=== PATIENT | male | born 1950 | race Caucasian/White ===

== ENCOUNTER 2022-02-27 09:37 | Observation (INO) | payer MEDICARE ==
[2022-02-27 10:25] LABS: Glucose,Whole Blood 431 mg/dL (75-99)
[2022-02-27] MEDS ORDERED: SODIUM CHLORIDE 0.9% 500 ML 500 ML IV STA (10:49)
--- NOTE | 2022-02-27 10:57 | ED ---
General Adult HPI - General Chief complaint: Recheck/Abnormal Lab/Rx Stated complaint: High BS Time Seen by Provider: 02/27/22 10:40 Source: patient Mode of arrival: ambulatory Limitations: no limitations - History of Present Illness Initial comments: 72-year-old male alert and oriented 4, presents with complaints of 100 pound weight loss over the past 3 months with a decrease in appetite and generalized malaise. Patient states that he is a smoker and does smoke marijuana. Denies any drug use or daily drinking. He states he has not seen his primary care doctor, Dr Soares, in several years. He denies any medical history, states does not take any medication on a daily basis. -: month(s) (3) Severity scale (1-10): 0 Associated Symptoms: loss of appetite, malaise - Related Data Home Medications Medication Instructions Recorded Confirmed Aspirin EC [Ecotrin Low Dose] 81 mg PO DAILY 02/27/22 02/27/22 Allergies Allergy/AdvReac Type Severity Reaction Status Date / Time No Known Allergies Allergy Verified 02/27/22 11:08 Review of Systems ROS Statement: Those systems with pertinent positive or pertinent negative responses have been documented in the HPI. ROS Other: All systems not noted in ROS Statement are negative. Past Medical History Past Medical History: No Reported History History of Any Multi-Drug Resistant Organisms: None Reported Additional Past Surgical History / Comment(s): pierre lomax. Past Psychological History: No Psychological Hx Reported Smoking Status: Current every day smoker Past Alcohol Use History: Occasional Past Drug Use History: Marijuana General Exam Limitations: no limitations General appearance: alert, in no apparent distress Head exam: Present: atraumatic Eye exam: Present: normal appearance, PERRL, EOMI. Absent: scleral icterus, conjunctival injection, nystagmus, periorbital swelling, periorbital tenderness ENT exam: Present: mucous membranes moist, other (Dried blood in the left nostril shallow abrasion nasal fold) Expanded Mouth exam: Present: tongue normal, tongue elevation. Absent: drooling, trismus, muffled voice Neck exam: Present: normal inspection, full ROM. Absent: tenderness, meningi smus, lymphadenopathy, thyromegaly Respiratory exam: Present: normal lung sounds bilaterally. Absent: respiratory distress, wheezes, rales, rhonchi, stridor, chest wall tenderness, accessory muscle use, decreased breath sounds Cardiovascular Exam: Present: tachycardia, normal heart sounds. Absent: JVD GI/Abdominal exam: Present: soft. Absent: distended, tenderness, guarding, rebound, rigid Extremities exam: Present: full ROM, normal capillary refill. Absent: tenderness, pedal edema Back exam: Present: full ROM. Absent: tenderness, CVA tenderness (R), CVA tenderness (L), paraspinal tenderness, vertebral tenderness, rash noted Neurological exam: Present: alert, oriented X3 Psychiatric exam: Present: normal affect, normal mood Skin exam: Present: warm, dry, pallor. Absent: cyanosis, diaphoretic Course Vital Signs 02/27/22 02/27/22 02/27/22 10:22 11:35 13:07 Temperature 97.6 F 97.4 F L Pulse Rate 105 H 85 Respiratory 18 62 H 20 Rate Blood Pressure 112/78 129/90 144/90 O2 Sat by Pulse 99 97 97 Oximetry 02/27/22 14:28 Temperature Pulse Rate 74 Respiratory 18 Rate Blood Pressure 133/92 O2 Sat by Pulse 100 Oximetry Medical Decision Making - Medical Decision Making 72-year-old male alert and oriented 4, presents with complaints of 100 pound weight loss over the past 3 months with a decrease in appetite and generalized malaise. Chest x-ray shows COPD with prominent emphysema. Sternotomy wires present. No evidence of masses. Hemoglobin and hematocrit are stable and there is no evidence of leukocytosis. Patient's blood glucose is 431 with a hemoglobin A1c of 12.9. Potassium is 2.8, chloride of 90 and a carbon dioxide of 35. Lactic acidosis of 3.0. Troponin is negative at 0.012. Patient was given potassium replacement in the emergency room in addition to IV fluids Patient will be admitted for hypokalemia, lactic acidosis, dehydration. Case discussed with Dr. Boyd. - Lab Data Result diagrams: 02/27/22 11:09 02/27/22 11:09 Lab Results 02/27/22 02/27/22 02/27/22 Range/Units 10:23 11:09 11:09 WBC 8.4 (3.8-10.6) k/uL RBC 5.96 H (4.30-5.90) m/uL Hgb 18.1 H (13.0-17.5) gm/dL Hct 52.3 (39.0-53.0) % MCV 87.8 (80.0-100.0) fL MCH 30.4 (25.0-35.0) pg MCHC 34.6 (31.0-37.0) g/dL RDW 13.4 (11.5-15.5) % Plt Count 280 (150-450) k/uL MPV 8.3 Neutrophils % 76 % Lymphocytes % 16 % Monocytes % 4 % Eosinophils % 1 % Basophils % 1 % Neutrophils # 6.5 (1.3-7.7) k/uL Lymphocytes # 1.4 (1.0-4.8) k/uL Monocytes # 0.3 (0-1.0) k/uL Eosinophils # 0.1 (0-0.7) k/uL Basophils # 0.1 (0-0.2) k/uL PT 10.3 (9.0-12.0) sec INR 0.9 (<1.2) APTT 22.3 (22.0-30.0) sec Sodium (137-145) mmol/L Potassium (3.5-5.1) mmol/L Chloride (98-107) mmol/L Carbon Dioxide (22-30) mmol/L Anion Gap mmol/L BUN (9-20) mg/dL Creatinine (0.66-1.25) mg/dL Est GFR (CKD-EPI)AfAm (>60 ml/min/1.73 sqM) Est GFR (CKD-EPI)NonAf (>60 ml/min/1.73 sqM) Glucose (74-99) mg/dL POC Glucose (mg/dL) 431 H (75-99) mg/dL POC Glu Linen Clerk Dav [address] Glu mg/dL Hemoglobin A1c (0.0-6.0) % Lactic Ac Sepsis Rflx Plasma Lactic Acid Lemuel (0.7-2.0) mmol/L Calcium (8.4-10.2) mg/dL Ionized Calcium Toma (4.5-5.3) mg/dL Magnesium (1.6-2.3) mg/dL Total Bilirubin (0.2-1.3) mg/dL AST (17-59) U/L ALT (4-49) U/L Alkaline Phosphatase (38-126) U/L Troponin I (0.000-0.034) ng/mL Total Protein (6.3-8.2) g/dL Albumin (3.5-5.0) g/dL TSH (0.465-4.680) mIU/L Urine Color Urine Appearance (Clear) Urine pH (5.0-8.0) Ur Specific [place] (1.001-1.035) Urine Protein (Negative) Urine Glucose (UA) (Negative) Urine Ketones (Negative) Urine Blood (Negative) Urine Nitrite (Negative) Urine Bilirubin (Negative) Urine Urobilinogen (<2.0) mg/dL Ur Leukocyte Esterase (Negative) 02/27/22 02/27/22 02/27/22 Range/Units 11:09 11:09 11:09 WBC (3.8-10.6) k/uL RBC (4.30-5.90) m/uL Hgb (13.0-17.5) gm/dL Hct (39.0-53.0) % MCV (80.0-100.0) fL MCH (25.0-35.0) pg MCHC (31.0-37.0) g/dL RDW (11.5-15.5) % Plt Count (150-450) k/uL MPV Neutrophils % % Lymphocytes % % Monocytes % % Eosinophils % % Basophils % % Neutrophils # (1.3-7.7) k/uL Lymphocytes # (1.0-4.8) k/uL Monocytes # (0-1.0) k/uL Eosinophils # (0-0.7) k/uL Basophils # (0-0.2) k/uL PT (9.0-12.0) sec INR (<1.2) APTT (22.0-30.0) sec Sodium 135 L (137-145) mmol/L Potassium 2.8 L (3.5-5.1) mmol/L Chloride 90 L (98-107) mmol/L Carbon Dioxide 35 H (22-30) mmol/L Anion Gap 10 mmol/L BUN 5 L (9-20) mg/dL Creatinine 0.51 L (0.66-1.25) mg/dL Est GFR (CKD-EPI)AfAm >90 (>60 ml/min/1.73 sqM) Est GFR (CKD-EPI)NonAf >90 (>60 ml/min/1.73 sqM) Glucose 416 H (74-99) mg/dL POC Glucose (mg/dL) (75-99) mg/dL POC Glu Linen Clerk ID Estimated [address] Glu mg/dL 324 Hemoglobin A1c 12.9 H (0.0-6.0) % Lactic Ac Sepsis Rflx Plasma Lactic Acid Lemuel (0.7-2.0) mmol/L Calcium 8.8 (8.4-10.2) mg/dL Ionized Calcium [place] 4.5 (4.5-5.3) mg/dL Magnesium 1.7 (1.6-2.3) mg/dL Total Bilirubin 1.1 (0.2-1.3) mg/dL AST 23 (17-59) U/L ALT 23 (4-49) U/L Alkaline Phosphatase 179 H (38-126) U/L Troponin I <0.012 (0.000-0.034) ng/mL Total Protein 6.3 (6.3-8.2) g/dL Albumin 3.5 (3.5-5.0) g/dL TSH 1.540 (0.465-4.680) mIU/L Urine Color Urine Appearance (Clear) Urine pH (5.0-8.0) Ur Specific [place] (1.001-1.035) Urine Protein (Negative) Urine Glucose (UA) (Negative) Urine Ketones (Negative) Urine Blood (Negative) Urine Nitrite (Negative) Urine Bilirubin (Negative) Urine Urobilinogen (<2.0) mg/dL Ur Leukocyte Esterase (Negative) 02/27/22 02/27/22 02/27/22 Range/Units 11:10 11:11 11:27 WBC (3.8-10.6) k/uL RBC (4.30-5.90) m/uL Hgb (13.0-17.5) gm/dL Hct (39.0-53.0) % MCV (80.0-100.0) fL MCH (25.0-35.0) pg MCHC (31.0-37.0) g/dL RDW (11.5-15.5) % Plt Count (150-450) k/uL MPV Neutrophils % % Lymphocytes % % Monocytes % % Eosinophils % % Basophils % % Neutrophils # (1.3-7.7) k/uL Lymphocytes # (1.0-4.8) k/uL Monocytes # (0-1.0) k/uL Eosinophils # (0-0.7) k/uL Basophils # (0-0.2) k/uL PT (9.0-12.0) sec INR (<1.2) APTT (22.0-30.0) sec Sodium (137-145) mmol/L Potassium (3.5-5.1) mmol/L Chloride (98-107) mmol/L Carbon Dioxide (22-30) mmol/L Anion Gap mmol/L BUN (9-20) mg/dL Creatinine (0.66-1.25) mg/dL Est GFR (CKD-EPI)AfAm (>60 ml/min/1.73 sqM) Est GFR (CKD-EPI)NonAf (>60 ml/min/1.73 sqM) Glucose (74-99) mg/dL POC Glucose (mg/dL) (75-99) mg/dL POC Glu Linen Clerk ID Estimated Ave Glu mg/dL Hemoglobin A1c (0.0-6.0) % Lactic Ac Sepsis Rflx Y Plasma Lactic Acid Lemuel 3.0 H* (0.7-2.0) mmol/L Calcium (8.4-10.2) mg/dL Ionized Calcium Toma (4.5-5.3) mg/dL Magnesium (1.6-2.3) mg/dL Total Bilirubin (0.2-1.3) mg/dL AST (17-59) U/L ALT (4-49) U/L Alkaline Phosphatase (38-126) U/L Troponin I (0.000-0.034) ng/mL Total Protein (6.3-8.2) g/dL Albumin (3.5-5.0) g/dL TSH (0.465-4.680) mIU/L Urine Color Yellow Urine Appearance Clear (Clear) Urine pH 6.5 (5.0-8.0) Ur Specific [place] 1.040 H (1.001-1.035) Urine Protein Negative (Negative) Urine Glucose (UA) 4+ H (Negative) Urine Ketones 1+ H (Negative) Urine Blood Negative (Negative) Urine Nitrite Negative (Negative) Urine Bilirubin Negative (Negative) Urine Urobilinogen <2.0 (<2.0) mg/dL Ur Leukocyte Esterase Negative (Negative) Disposition Clinical Impression: Hypokalemia, Dehydration, Lactic acid acidosis, Hyperglycemia Disposition: ADMITTED IP TO THIS HOSP Decision Date: 02/27/22 Decision Time: 12:29
[2022-02-27 11:20] LABS: Ionized Calcium 4.5 mg/dL (4.5-5.3)
[2022-02-27 11:26] LABS: ALT 23 U/L (4-49); AST 23 U/L (17-59); African American GFR (CKD) >90 (>60 ml/min/1.73 sqM); Albumin 3.5 g/dL (3.5-5.0); Alkaline Phosphatase 179 U/L (38-126); Anion Gap 10 mmol/L; Blood Urea Nitrogen 5 mg/dL (9-20); Calcium 8.8 mg/dL (8.4-10.2); Carbon Dioxide 35 mmol/L (22-30); Chloride 90 mmol/L (98-107); Glucose 416 mg/dL (74-99); Magnesium 1.7 mg/dL (1.6-2.3); Non-African American GFR(CKD) >90 (>60 ml/min/1.73 sqM); Potassium 2.8 mmol/L (3.5-5.1); Sodium 135 mmol/L (137-145); Total Bilirubin 1.1 mg/dL (0.2-1.3); Total Protein 6.3 g/dL (6.3-8.2)
[2022-02-27 11:29] LABS: Basophils # (A) 0.1 k/uL (0-0.2); Basophils % (A) 1 %; Eosinophils # (A) 0.1 k/uL (0-0.7); Eosinophils % (A) 1 %; HCT 52.3 % (39.0-53.0); HGB 18.1 gm/dL (13.0-17.5); Lymphocytes # (A) 1.4 k/uL (1.0-4.8); Lymphocytes % (A) 16 %; MCH 30.4 pg (25.0-35.0); MCHC 34.6 g/dL (31.0-37.0); MCV 87.8 fL (80.0-100.0); Mean Platelet Volume 8.3; Monocytes # (A) 0.3 k/uL (0-1.0); Monocytes % (A) 4 %; Neutrophils # (A) 6.5 k/uL (1.3-7.7); Neutrophils % (A) 76 %; Platelet Count 280 k/uL (150-450); RBC 5.96 m/uL (4.30-5.90); RDW 13.4 % (11.5-15.5); WBC 8.4 k/uL (3.8-10.6)
[2022-02-27 11:32] LABS: Appearance,Urine Clear (Clear); Bilirubin,Urine Negative (Negative); Blood,Urine Negative (Negative); Color,Urine Yellow; Glucose,Urine (UA) 4+ (Negative); Ketones,Urine 1+ (Negative); Leukocyte Esterase,Urine Negative (Negative); Nitrite,Urine Negative (Negative); PH, Urine 6.5 (5.0-8.0); Protein,Urine Negative (Negative); Urobilinogen,Urine <2.0 mg/dL (<2.0)
[2022-02-27] MEDS ORDERED: Potassium Replacement Protocol 1 EACH MISC MISCELLANE PRN (11:32)
[2022-02-27] MEDS ORDERED: SODIUM CHLORIDE 0.9% 1,000 ML IV ONE (11:33)
[2022-02-27 11:38] LABS: INR 0.9 (<1.2); Partial Thromboplastin Time 22.3 sec (22.0-30.0); Prothrombin Time 10.3 sec (9.0-12.0)
--- NOTE | 2022-02-27 11:40 | XR ---
EXAMINATION TYPE: XR chest 2V DATE OF EXAM: 02/27/2022 COMPARISON: None HISTORY: 72-year-old male with weakness, weight loss TECHNIQUE: Frontal and lateral views FINDINGS: Median sternotomy wires and post-CABG clips in the mediastinum. Heart normal size. Aorta and pulmonar y vasculature within normal limits. Hyperinflation with relative lung lucencies. Retained epicardial pacer leads. No consolidation or pleural effusion. IMPRESSION: COPD with prominent emphysema. Post-CABG changes. No acute process seen.
[2022-02-27] MEDS ORDERED: NALOXONE 0.4 MG/ML 1 ML VIAL IV PRN (12:49)
[2022-02-27] MEDS: POTASSIUM CHLORIDE 10 MEQ in WATER FOR INJECTION 1 100ML.BAG IVPB SCH ×6 (12:53→20:52)
[2022-02-27] MEDS: POTASSIUM CHLORIDE ER 20 MEQ TAB.ER PO SCH ×3 (12:54→15:54)
--- NOTE | 2022-02-27 14:13 | P.HPIM ---
History of Present Illness Issue is a 72-year-old male with a past medical history significant for coronary disease status post quadruple bypass the presents to the hospital complaining of feeling lethargic, weak and having significant weight loss over the past few months. Patient endorses over 100 pound weight loss with decreased appetite. He does use marijuana smokes approximately 3 blunts a day. Patient's vital signs he is afebrile slightly hypertensive 144/90, sodium 135, potassium 2.8, glucose 416 lactic acidosis at 3.0. Crit troponin was found to be negative 1. Patient has seen a doctor in many years and is being admitted to internal medic ine for close monitoring. Past Medical History Past Medical History: No Reported History History of Any Multi-Drug Resistant Organisms: None Reported Additional Past Surgical History / Comment(s): pierre lomax. Past Psychological History: No Psychological Hx Reported Smoking Status: Current every day smoker Past Alcohol Use History: Occasional Past Drug Use History: Marijuana Medications and Allergies Home Medications Medication Instructions Recorded Confirmed Type Aspirin EC [Ecotrin Low Dose] 81 mg PO DAILY 02/27/22 02/27/22 History Allergies Allergy/AdvReac Type Severity Reaction Status Date / Time No Known Allergies Allergy Verified 02/27/22 11:08 Physical Exam Vitals: Vital Signs Temp Pulse Resp BP Pulse Ox 02/27/22 13:07 85 20 144/90 97 02/27/22 11:35 97.4 F L 62 H 129/90 97 02/27/22 10:22 97.6 F 105 H 18 112/78 99 Intake and Output 02/26/22 02/27/22 02/27/22 22:59 06:59 14:59 Other: Weight 52.163 kg general awake alert oriented 3, very pleasant Cardiovascular normal S1/S2, no murmurs appreciated Respiratory normal bilateral air entry no wheezing or rhonchi appreciated Abdomen soft, nontender Extremity no pitting edema noted Results CBC & Chem 7: 02/27/22 11:09 02/27/22 11:09 Labs: Abnormal Lab Results - Last 24 Hours (Table) 02/27/22 02/27/22 02/27/22 Range/Units 10:23 11:09 11:09 RBC 5.96 H (4.30-5.90) m/uL Hgb 18.1 H (13.0-17.5) gm/dL Sodium 135 L (137-145) mmol/L Potassium 2.8 L (3.5-5.1) mmol/L Chloride 90 L (98-107) mmol/L Carbon Dioxide 35 H (22-30) mmol/L BUN 5 L (9-20) mg/dL Creatinine 0.51 L (0.66-1.25) mg/dL Glucose 416 H (74-99) mg/dL POC Glucose (mg/dL) 431 H (75-99) mg/dL Plasma Lactic Acid Lemuel (0.7-2.0) mmol/L Alkaline Phosphatase 179 H (38-126) U/L Ur Specific [place] (1.001-1.035) Urine Glucose (UA) (Negative) Urine Ketones (Negative) 02/27/22 02/27/22 Range/Units 11:10 11:11 RBC (4.30-5.90) m/uL Hgb (13.0-17.5) gm/dL Sodium (137-145) mmol/L Potassium (3.5-5.1) mmol/L Chloride (98-107) mmol/L Carbon Dioxide (22-30) mmol/L BUN (9-20) mg/dL Creatinine (0.66-1.25) mg/dL Glucose (74-99) mg/dL POC Glucose (mg/dL) (75-99) mg/dL Plasma Lactic Acid Lemuel 3.0 H* (0.7-2.0) mmol/L Alkaline Phosphatase (38-126) U/L Ur Specific [place] 1.040 H (1.001-1.035) Urine Glucose (UA) 4+ H (Negative) Urine Ketones 1+ H (Negative) Assessment and Plan Assessment: Assessment: #1 hyperglycemia secondary to undiagnosed diabetes mellitus? #2 coronary disease status post quadruple bypass Plan: -Admit to medicine for close monitoring -Aspiration/fall precaution/HB 30 -Obtain hemoglobin A1c and lipid panel -We'll start patient on low-dose sliding scale and 5 units Levemir for now -PT/OT-patient lives by himself -DVT prophylaxis Lovenox
[2022-02-27] MEDS: SODIUM CHLORIDE 0.9% 1,000 ML IV SCH (14:21)
[2022-02-27 17:51] LABS: Glucose,Whole Blood 238 mg/dL (75-99)
[2022-02-27] MEDS: INSULIN ASPART (NovoLOG) 100 UNIT/ML VIAL SQ SCH ×2 (18:12→20:53)
[2022-02-27 20:26] LABS: Glucose,Whole Blood 267 mg/dL (75-99)
[2022-02-27] MEDS: INSULIN DETEMIR (LEVEMIR) 100 UNIT/ML SYR SQ SCH (20:53)
[2022-02-27 22:52] LABS: Chol/HDL Ratio 3.95 Ratio; LDL Cholesterol,Calculated 95.1 mg/dL (0.0-131.0)
[2022-02-28] MEDS: SODIUM CHLORIDE 0.9% 1,000 ML IV SCH ×2 (04:37→17:00)
[2022-02-28 07:01] LABS: Glucose,Whole Blood 106 mg/dL (75-99)
[2022-02-28] MEDS: INSULIN ASPART (NovoLOG) 100 UNIT/ML VIAL SQ SCH ×3 (08:16→17:52)
[2022-02-28] MEDS: INSULIN DETEMIR (LEVEMIR) 100 UNIT/ML SYR SQ SCH (08:33)
[2022-02-28] MEDS ORDERED: ASPIRIN 81 MG PO SCH (09:00)
[2022-02-28 09:43] LABS: Basophils # (A) 0.11 X 10*3/uL (0.00-0.10); Basophils % (A) 1.2 %; Eosinophils # (A) 0.17 X 10*3/uL (0.04-0.35); Eosinophils % (A) 1.9 %; HCT 47.4 % (39.6-50.0); HGB 16.4 g/dL (13.0-17.0); Immature Grans, Automated 0.2 %; Lymphocytes # (A) 2.34 X 10*3/uL (0.90-5.00); Lymphocytes % (A) 26.3 %; MCH 29.1 pg (27.0-32.0); MCHC 34.6 g/dL (32.0-37.0); Mean Platelet Volume 10.9 fL (9.5-12.2); Monocytes # (A) 0.65 X 10*3/uL (0.20-1.00); Monocytes % (A) 7.3 %; NRBC Per 100 WBC 0 /100 WBCS (0.0-0.0); Neutrophils # (A) 5.61 X 10*3/uL (1.80-7.70); Neutrophils % (A) 63.1 %; Platelet Count 264 X 10*3/uL (140-440); RBC 5.64 X 10*6/uL (4.40-5.60); RDW 12.9 % (11.5-14.5)
[2022-02-28 09:58] LABS: African American GFR (CKD) 117.2 (60.0-200.0); Blood Urea Nitrogen 3.6 mg/dL (9.0-27.0); Calcium 8.8 mg/dL (8.7-10.3); Non-African American GFR(CKD) 101.2 (60.0-200.0); Potassium 3.2 mmol/L (3.5-5.5)
[2022-02-28 11:51] LABS: Glucose,Whole Blood 110 mg/dL (75-99)
[2022-02-28 13:47] VITALS: BMI 18.6
[2022-02-28 14:56] VITALS: BP 119/75; PULSE 92; RESP 16; TEMP 98.3
[2022-02-28] MEDS ORDERED: MAGNESIUM OXIDE 400 MG TAB PO STA (16:52)
[2022-02-28] MEDS ORDERED: POTASSIUM CHLORIDE ER 20 MEQ TAB.ER PO STA (16:53)
[2022-02-28 17:01] LABS: Glucose,Whole Blood 98 mg/dL (75-99)
--- NOTE | 2022-02-28 18:01 | P.DS ---
Providers Date of admission: 02/27/22 12:57 Expected date of discharge: 02/28/22 Attending physician: Norm Raphael MD Primary care physician: Fany Villalobos Hospital Course: Discharge Diagnosis: Newly diagnosed diabetes with hemoglobin A1c of 12.9%, recommended patient to be started on insulin patient adamantly against this. Patient discharged home on metformin and glipizide. Patient received education on checking his blood glucose levels and will receive glucometer, glucose testing supplies, and medications from [facility] pharmacy prior to discharge. COPD, recommend following up outpatient with registered health nurse as we discussed. Hypokalemia, replaced Hypomagnesemia, replaced History of CAD status post quadruple bypass, recommend continuing daily aspirin 81 mg and follow up outpatient with dishwasher busser for full workup. Daily cannabis use, recommended total cessation Nicotine dependence, recommend smoking cessation of both marijuana and cigarettes and follow-up with pulmonology for PFTs to evaluate COPD Hyponatremia and hypochloremia, resolved with IV fluid hydration Hospital Course: Patient is a 72-year-old male with a past medical history of CAD status post quadruple bypass and daily marijuana use who presented to the hospital with a chief complaint of feeling lethargic, weak, and weight loss over the past few months. He was seen and fully evaluated at the hospital with CBC unremarkable with the exception of elevated hemoglobin of 18.1 and a CO2 of 35. Chest x-ray consistent with COPD with prominent emphysema. Patient denies history of being told he has COPD but has long-standing history of nicotine dependence and daily cannabis use. BMP did reveal significant hypokalemia with potassium of 2.8, hyperchloremia with chloride of 90, and hypercarbia with CO2 of 35. Lastly serum glucose was 416 and hemoglobin A1c 12.9%. Patient was admitted under our services and underwent overnight monitoring. Patient was placed on glycemic protocol with NovoLog sliding scale. Patient underwent diabetic teaching and strongly encourage that he will need to be discharged home on insulin. Patient very adamant against being discharged home on insulin stating he will not administer injections. Patient denies alcohol use at home but does report drinking a lot of regular soda every day. Patient educated on the importance of cessation of regular soda and informed that he will need to switch to diet and/or water as it is important in controlling his blood glucose levels especially with his history of CAD with previous quadruple bypass. Patient received education on monitoring his blood glucose levels and will receive glucometer, glucose testing supplies, and medications Glucophage and glipizide upon discharge. Patient informed that this is not the end of his testing that he will need full workups completed by dishwasher busser, registered health nurse, and his primary doctor for further evaluation as patient reports not being seen/following a primary doctor in many many many years. Patient educated on the importance of follow-up and maintaining health. At this time patient is medically stable, after receiving IV hydration and obtaining control of glucose levels patient's lethargy and weakness subsided and patient reports feeling great and ready to go home. Patient scheduled appointment with Dr. Soares for tomorrow morning and verbalized that he will follow up . A total of 45 minutes of time were spent preparing this complex discharge summary. Patient Condition at Discharge: Stable Plan - Discharge Summary Discharge Rx Participant: Yes New Discharge Prescriptions: New metFORMIN HCL [Glucophage] 500 mg PO BID 30 Days #60 tab glipiZIDE [Glucotrol XL] 10 mg PO DAILY 30 Days #30 tab Continue Aspirin EC [Ecotrin Low Dose] 81 mg PO DAILY Discharge Medication List Aspirin EC [Ecotrin Low Dose] 81 mg PO DAILY 02/27/22 [History] glipiZIDE [Glucotrol XL] 10 mg PO DAILY 30 Days #30 tab 02/28/22 [Rx] metFORMIN HCL [Glucophage] 500 mg PO BID 30 Days #60 tab 02/28/22 [Rx] Follow up Appointment(s)/Referral(s): Gisela Jean MD [STAFF PHYSICIAN] - 1 Week (Recommend following up outpatient with dishwasher busser as you have a significant cardiac history with a quadruple bypass back in 1988 and do not follow with cardiology or take any cardiac medications.) Wilfredo Soares MD [Primary Care Provider] - 1-2 days Jennyfer Floyd MD [STAFF PHYSICIAN] - 1 Week (Recommend following up with a registered health nurse for PFTs as it is believed to have underlying undiagnosed COPD) Ambulatory/Diagnostic Orders: Basic Metabolic Panel [LAB.AMB] Time Frame: 3 Days, Location: None Selected Patient Instructions/Handouts: Hypoglycemia in a Person with Diabetes (DC), Di abetic Hyperglycemia (DC), What to Do if Your Blood Sugar is Low (DC), Diabetes and Nutrition (DC) Activity/Diet/Wound Care/Special Instructions: Activity: As tolerated. Take breaks as needed. Diet: Heart healthy and carb consistent diet. Avoid salts, or foods with hidden salts such as canned or boxed foods and frozen dinners. Extra salt makes your heart work harder and traps the fluid in your body for longer. Special Instructions: Take all of your medications as directed and remember to keep all of your doctor's appointments and follow-up as needed. It is very important for you to monitor blood glucose levels every day as we discussed and he will need to follow up with your PCP, Dr. Soares on a regular basis. As I informed you typically somebody with a hemoglobin A1c of 12.9% requires insulin, and since you aren't supposed to administration of insulin, it is very important for you to follow a strict heart healthy and carb consistent diet and especially stop drinking regular pop/soda intake the medications as directed. You will need to log/document daily blood glucose levels in a journal to bring with you each time to Dr. Soares's office as further adjustments may need to be made to your medication regimen. Rach at [facility] will supply your blood sugar testing supplies. They can be contacted at [phone]. You will need to make sure that you follow with your primary care doctor as we discussed. It is also important to be evaluated by a registered health nurse for COPD and a dishwasher busser for pre-existing coronary artery disease with history of bypass and no longer taking any cardiac medications. I understand that you are not going to the doctor's and/or hospital however it is of utmost importance to get full workup completed and all areas of your health. Thank you for allowing us to participate in your care, it was truly a pleasure having you for our patient!!! Discharge Disposition: HOME SELF-CARE
== END 2022-02-28 18:05 | disposition home or self-care (01) ==
LOC: EC 09:37 → 6NMEDSUR 12:57
PROVIDERS: ADMIT Internal Medicine; ATTEND Internal Medicine
DX: E11.65 Type 2 diabetes mellitus with hyperglycemia (principal); E87.2 Acidosis; E86.0 Dehydration; E87.6 Hypokalemia; R53.81 Other malaise; R63.4 Abnormal weight loss; J43.9 Emphysema, unspecified; R63.0 Anorexia; E83.42 Hypomagnesemia; E87.1 Hypo-osmolality and hyponatremia; E87.8 Other disorders of electrolyte and fluid balance, not elsewhere classified; R06.89 Other abnormalities of breathing; F17.200 Nicotine dependence, unspecified, uncomplicated; I25.10 Atherosclerotic heart disease of native coronary artery without angina pectoris; I10 Essential (primary) hypertension; Z95.1 Presence of aortocoronary bypass graft; Z71.6 Tobacco abuse counseling; Z71.3 Dietary counseling and surveillance; Z71.89 Other specified counseling; Z79.82 Long term (current) use of aspirin
CPT/HCPCS: 96361 ×2; 96366 ×2; 96365; 99284; 36415; 97161; 80061; 80053; 80048; 82330; 83605; 83735 ×2; 84443; 84484; 85025 ×2; 85610; 85730; 81003; 83036; 71046; G0378 ×2; J3480

== ENCOUNTER 2022-04-23 16:51 | Inpatient (IN) | payer MEDICARE ==
[2022-04-23 17:59] LABS: ALT 52 U/L (4-49); AST 84 U/L (17-59); African American GFR (CKD) >90 (>60 ml/min/1.73 sqM); Albumin 3.7 g/dL (3.5-5.0); Alkaline Phosphatase 445 U/L (38-126); Anion Gap 4 mmol/L; Blood Urea Nitrogen 16 mg/dL (9-20); Calcium 9.4 mg/dL (8.4-10.2); Carbon Dioxide 35 mmol/L (22-30); Chloride 96 mmol/L (98-107); Glucose 53 mg/dL (74-99); Non-African American GFR(CKD) >90 (>60 ml/min/1.73 sqM); Potassium 3.6 mmol/L (3.5-5.1); Sodium 135 mmol/L (137-145); Total Bilirubin 1.2 mg/dL (0.2-1.3); Total Protein 6.6 g/dL (6.3-8.2)
[2022-04-23 18:11] LABS: Basophils # (A) 0.3 k/uL (0-0.2); Basophils % (A) 3 %; Eosinophils # (A) 0.1 k/uL (0-0.7); Eosinophils % (A) 1 %; Lymphocytes # (A) 1.4 k/uL (1.0-4.8); Lymphocytes % (A) 15 %; MCH 29.6 pg (25.0-35.0); MCV 89.8 fL (80.0-100.0); Mean Platelet Volume 8.1; Monocytes # (A) 0.5 k/uL (0-1.0); Monocytes % (A) 6 %; Neutrophils # (A) 6.6 k/uL (1.3-7.7); Neutrophils % (A) 73 %; Platelet Count 297 k/uL (150-450); RBC 5.23 m/uL (4.30-5.90); RDW 14.5 % (11.5-15.5); WBC 9.1 k/uL (3.8-10.6)
[2022-04-23 18:13] LABS: HGB 15.5 gm/dL (13.0-17.5)
[2022-04-23 18:20] LABS: Prothrombin Time 10.9 sec (9.0-12.0)
[2022-04-23 18:23] LABS: Partial Thromboplastin Time 21.7 sec (22.0-30.0)
--- NOTE | 2022-04-23 18:48 | ED ---
Weakness HPI - General Chief complaint: Weakness Stated complaint: Low BS/Wt loss Time Seen by Provider: 04/23/22 18:47 Source: patient, RN notes reviewed Mode of arrival: ambulatory Limitations: no limitations - History of Present Illness Initial comments: This is a 72-year-old male with a history of cardiac disease to include coronary artery bypass surgery. Patient comes in complaining of generalized weakness which is nonprogressive. Patient has lost 100 pounds over the past 3 months. Patient states he really has not been eating at all. He has had diminished appetite. Really no vomiting. States he still is having some bowel movements. He is also complaining difficulty with urination. Patient states he is going very frequently but not getting much out. He does have some lower abdominal pain which has been going on for several weeks. No headache, no fever or chills, no changes in vision or hearing, no sore throat or difficulty with speech, no neck pain, no chest pain or shortness of breath, no abdominal pain, no nausea or vomiting, no changes or bowel movements, no numbness or tingling, no extremity pain, no skin rashes or lesions. - Related Data Home Medications Medication Instructions Recorded Confirmed Aspirin EC [Ecotrin Low Dose] 81 mg PO DAILY 02/27/22 04/23/22 Ergocalciferol (Vitamin D2) 1,250 mcg PO TH 04/23/22 04/23/22 [Drisdol (50,000 Iu)] Previous Rx's Medication Instructions Recorded glipiZIDE [Glucotrol XL] 10 mg PO DAILY 30 Days #30 tab 02/28/22 metFORMIN HCL [Glucophage] 500 mg PO BID 30 Days #60 tab 02/28/22 Allergies Allergy/AdvReac Type Severity Reaction Status Date / Time No Known Allergies Allergy Verified 04/23/22 19:08 Review of Systems ROS Statement: Those systems with pertinent positive or pertinent negative responses have been documented in the HPI. ROS Other: All systems not noted in ROS Statement are negative. Past Medical History Past Medical History: No Reported History, Diabetes Mellitus History of Any Multi-Drug Resistant Organisms: None Reported Past Surgical History: Coronary Bypass/CABG, Hernia Repair Additional Past Surgical History / Comment(s): quad bypass about 1984. Past Anesthesia/Blood Transfusion Reactions: No Reported Reaction Past Psychological History: No Psychological Hx Reported Smoking Status: Current every day smoker Past Alcohol Use History: Occasional Past Drug Use History: Marijuana General Exam - General Exam Comments Initial Comments: This is a cachectic appearing 72-year-old male who is in no significant distress at the time I'm seeing him. Appears to be generally ill but not toxic. Pale appearance. Capillary refill is approximately 3 seconds. Limitations: no limitations General appearance: alert, in no apparent distress Head exam: Present: atraumatic, normocephalic, normal inspection Eye exam: Present: normal appearance, PERRL, EOMI. Absent: scleral icterus, conjunctival injection, periorbital swelling ENT exam: Present: normal exam, normal oropharynx, mucous membranes dry, mucous membranes moist, normal external ear exam Neck exam: Present: normal inspection. Absent: tenderness, meningismus, lymphadenopathy Respiratory exam: Present: normal lung sounds bilaterally. Absent: respiratory distress, wheezes, rales, rhonchi, stridor, chest wall tenderness, accessory muscle use, decreased breath sounds, prolonged expiratory Cardiovascular Exam: Present: regular rate, normal rhythm, normal heart sounds. Absent: systolic murmur, diastolic murmur, rubs, gallop, clicks GI/Abdominal exam: Present: soft, tenderness (Minimal tenderness to the lower abdomen on palpation. Abdomen soft otherwise), hyperactive bowel sounds. Absent: distended, guarding, rebound, rigid Extremities exam: Present: normal inspection, full ROM, normal capillary refill. Absent: tenderness, pedal edema, joint swelling, calf tenderness Back exam: Present: normal inspection Neurological exam: Present: alert, oriented X3, CN II-XII intact Psychiatric exam: Present: normal affect, normal mood Skin exam: Present: warm, dry, intact, normal color. Absent: rash Course Vital Signs 04/23/22 04/23/22 17:17 19:52 Temperature 97.6 F Pulse Rate 104 H 84 Respiratory 20 15 Rate Blood Pressure 96/74 114/83 O2 Sat by Pulse 98 100 Oximetry - Reevaluation(s) Reevaluation #1: 04/23/22 21:46 Medical record is reviewed Patient symptomatically unchanged Patient is informed of results and questions answered Patient in no distress - Consultations Consultation #1: Case discussed in detail with Dr. gonsalez would subsequent admission of the patient. EKG Findings - EKG Comments: EKG Findings:: EKG done at 1722 and read by the ED attending physician reveals ventricular rate of 103, normal intervals, normal axis, no evidence of ST elevation. Minimal ST depression by computerized interpretation, likely related to lead 3 which is very minimal. Medical Decision Making - Medical Decision Making Cachectic-appearing male with ongoing weight loss and generalized weakness. Patient found to be hyperglycemic. Patient states he is really not eating. Patient obviously malnourished. Suspect patient has some form of cancer, he has had increasing difficulty with urination. Possible prostate issues. Initial laboratory work ordered in triage shows elevation of the alkaline phosphatase with modest elevations of the hepatic enzymes. Admitted to [facility] hospitalist group. Consultation for oncology made. We'll keep the patient on D5 normal saline. We will initiate a sliding scale - Lab Data Result diagrams: 04/23/22 17:32 04/23/22 17:32 Lab Results 04/23/22 04/23/22 04/23/22 Range/Units 17:32 17:32 17:32 WBC 9.1 (3.8-10.6) k/uL RBC 5.23 (4.30-5.90) m/uL Hgb 15.5 (13.0-17.5) gm/dL Hct 47.0 (39.0-53.0) % MCV 89.8 (80.0-100.0) fL MCH 29.6 (25.0-35.0) pg MCHC 33.0 (31.0-37.0) g/dL RDW 14.5 (11.5-15.5) % Plt Count 297 (150-450) k/uL MPV 8.1 Neutrophils % 73 % Lymphocytes % 15 % Monocytes % 6 % Eosinophils % 1 % Basophils % 3 % Neutrophils # 6.6 (1.3-7.7) k/uL Lymphocytes # 1.4 (1.0-4.8) k/uL Monocytes # 0.5 (0-1.0) k/uL Eosinophils # 0.1 (0-0.7) k/uL Basophils # 0.3 H (0-0.2) k/uL PT 10.9 (9.0-12.0) sec INR 1.0 (<1.2) APTT 21.7 L (22.0-30.0) sec Sodium 135 L (137-145) mmol/L Potassium 3.6 (3.5-5.1) mmol/L Chloride 96 L (98-107) mmol/L Carbon Dioxide 35 H (22-30) mmol/L Anion Gap 4 mmol/L BUN 16 (9-20) mg/dL Creatinine 0.77 (0.66-1.25) mg/dL Est GFR (CKD-EPI)AfAm >90 (>60 ml/min/1.73 sqM) Est GFR (CKD-EPI)NonAf >90 (>60 ml/min/1.73 sqM) Glucose 53 L (74-99) mg/dL POC Glucose (mg/dL) (75-99) mg/dL POC Glu Code Inspector ID Plasma Lactic Acid Lemuel (0.7-2.0) mmol/L Calcium 9.4 (8.4-10.2) mg/dL Magnesium 2.0 (1.6-2.3) mg/dL Total Bilirubin 1.2 (0.2-1.3) mg/dL AST 84 H (17-59) U/L ALT 52 H (4-49) U/L Alkaline Phosphatase 445 H (38-126) U/L Troponin I (0.000-0.034) ng/mL Total Protein 6.6 (6.3-8.2) g/dL Albumin 3.7 (3.5-5.0) g/dL 04/23/22 04/23/22 04/23/22 Range/Units 17:32 19:35 19:46 WBC (3.8-10.6) k/uL RBC (4.30-5.90) m/uL Hgb (13.0-17.5) gm/dL Hct (39.0-53.0) % MCV (80.0-100.0) fL MCH (25.0-35.0) pg MCHC (31.0-37.0) g/dL RDW (11.5-15.5) % Plt Count (150-450) k/uL MPV Neutrophils % % Lymphocytes % % Monocytes % % Eosinophils % % Basophils % % Neutrophils # (1.3-7.7) k/uL Lymphocytes # (1.0-4.8) k/uL Monocytes # (0-1.0) k/uL Eosinophils # (0-0.7) k/uL Basophils # (0-0.2) k/uL PT (9.0-12.0) sec INR (<1.2) APTT (22.0-30.0) sec Sodium (137-145) mmol/L Potassium (3.5-5.1) mmol/L Chloride (98-107) mmol/L Carbon Dioxide (22-30) mmol/L Anion Gap mmol/L BUN (9-20) mg/dL Creatinine (0.66-1.25) mg/dL Est GFR (CKD-EPI)AfAm (>60 ml/min/1.73 sqM) Est GFR (CKD-EPI)NonAf (>60 ml/min/1.73 sqM) Glucose (74-99) mg/dL POC Glucose (mg/dL) 88 (75-99) mg/dL POC Glu Code Inspector ID Sylvia Tejada Plasma Lactic Acid Lemuel 1.8 (0.7-2.0) mmol/L Calcium (8.4-10.2) mg/dL Magnesium (1.6-2.3) mg/dL Total Bilirubin (0.2-1.3) mg/dL AST (17-59) U/L ALT (4-49) U/L Alkaline Phosphatase (38-126) U/L Troponin I <0.012 (0.000-0.034) ng/mL Total Protein (6.3-8.2) g/dL Albumin (3.5-5.0) g/dL 04/23/22 Range/Units 21:45 WBC (3.8-10.6) k/uL RBC (4.30-5.90) m/uL Hgb (13.0-17.5) gm/dL Hct (39.0-53.0) % MCV (80.0-100.0) fL MCH (25.0-35.0) pg MCHC (31.0-37.0) g/dL RDW (11.5-15.5) % Plt Count (150-450) k/uL MPV Neutrophils % % Lymphocytes % % Monocytes % % Eosinophils % % Basophils % % Neutrophils # (1.3-7.7) k/uL Lymphocytes # (1.0-4.8) k/uL Monocytes # (0-1.0) k/uL Eosinophils # (0-0.7) k/uL Basophils # (0-0.2) k/uL PT (9.0-12.0) sec INR (<1.2) APTT (22.0-30.0) sec Sodium (137-145) mmol/L Potassium (3.5-5.1) mmol/L Chloride (98-107) mmol/L Carbon Dioxide (22-30) mmol/L Anion Gap mmol/L BUN (9-20) mg/dL Creatinine (0.66-1.25) mg/dL Est GFR (CKD-EPI)AfAm (>60 ml/min/1.73 sqM) Est GFR (CKD-EPI)NonAf (>60 ml/min/1.73 sqM) Glucose (74-99) mg/dL POC Glucose (mg/dL) 160 H (75-99) mg/dL POC Glu Code Inspector ID Navin Gomez Plasma Lactic Acid Lemuel (0.7-2.0) mmol/L Calcium (8.4-10.2) mg/dL Magnesium (1.6-2.3) mg/dL Total Bilirubin (0.2-1.3) mg/dL AST (17-59) U/L ALT (4-49) U/L Alkaline Phosphatase (38-126) U/L Troponin I (0.000-0.034) ng/mL Total Protein (6.3-8.2) g/dL Albumin (3.5-5.0) g/dL Disposition Clinical Impression: Pancreatic mass, Cholelithiasis, Anorexia, Metastatic cancer to liver Disposition: ADMITTED IP TO THIS [facility] Condition: Poor Referrals: Wilfredo Soares MD [Primary Care Provider] - 1-2 days Time of Disposition: 21:40 Decision to Admit Reason: Admit from EC Decision Time: 21:40
[2022-04-23] MEDS ORDERED: SODIUM CHLORIDE 0.9% 500 ML 500 ML IV STA (18:54)
[2022-04-23] MEDS ORDERED: DEXTROSE 50% SYRINGE 50 ML IVP STA (19:05)
[2022-04-23 19:47] LABS: Glucose,Whole Blood 88 mg/dL (75-99)
--- NOTE | 2022-04-23 20:38 | CT ---
EXAMINATION TYPE: CT abdomen pelvis w con CT DLP: 583.4 mGycm, Automated exposure control for dose reduction was used. DATE OF EXAM: 04/23/2022 8:13 PM COMPARISON: None CLINICAL INDICATION:Male, 72 years old with history of Weight loss, lower abdominal pain; Weight loss , lower abdominal pain TECHNIQUE: Standard CT of the abdomen and pelvis following the administration of 100 cc of Isovue 3 00 IV contrast material. Coronal and sagittal reformats were performed. FINDINGS: LOWER CHEST: Sternotomy wires are partially visualized with suspected CABG changes. ABDOMEN LIVER: Diffuse innumerable hypoattenuating areas throughout the liver the largest in the near the kal phragm measuring roughly 37 x 27 mm. GALLBLADDER AND BILE DUCTS: Laminated gallstone seen within the gallbladder lumen. PANCREAS: There is a heterogenous mass seen within the body of the pancreas with upstream main pancre atic duct dilatation. Main pancreatic duct within the body and tail measuring up to 5 mm. Mass measur es approximately 33 x 32 x 33 mm. SPLEEN: Unremarkable. ADRENAL GLANDS: Unremarkable. KIDNEYS AND URETERS: No evidence of hydronephrosis or renal calculus. The ureters are unremarkable. Left renal cyst measuring up to 20 mm. PELVIS BLADDER: Unremarkable REPRODUCTIVE: Unremarkable. ABDOMEN & PELVIS STOMACH AND BOWEL: No evidence of bowel obstruction. PERITONEUM: No evidence of pneumoperitoneum or free fluid. VASCULATURE: Moderate atherosclerotic calcifications are present throughout the abdominal aorta and i ts branches. MUSCULOSKELETAL: No acute osseous abnormalities. Mild degenerative changes are seen throughout the sp ine with ankylosis of the right sacroiliac joint. LYMPH NODES: There are enlarged heterogenous lymph nodes within the abdomen example includes portacav al measuring up to 16 mm in short axis as well as gastrohepatic measuring up to 14 mm in short axis. SOFT TISSUE/ABDOMINAL WALL: Unremarkable IMPRESSION: 1. Pancreatic body mass with metastatic disease throughout the liver and upper abdominal abdominal ly mph nodes. 2. Cholelithiasis. 3. Moderate atherosclerotic disease.
--- NOTE | 2022-04-23 20:50 | XR ---
EXAMINATION TYPE: XR chest 2V DATE OF EXAM: 04/23/2022 8:15 PM COMPARISON: Chest radiographs from 02/27/2022 TECHNIQUE: XR chest 2V Frontal and lateral views of the chest. CLINICAL INDICATION:Male, 72 years old with history of Weakness; FINDINGS: Lungs/Pleura: There is no evidence of pleural effusion, focal consolidation, or pneumothorax. Pulmonary vascularity: Unremarkable. Heart/mediastinum: Cardiomediastinal silhouette is unremarkable. Musculoskeletal: No acute osseous pathology. Midline sternotomy wires are noted and stable. IMPRESSION: No acute cardiopulmonary disease/process.
[2022-04-23 21:47] LABS: Glucose,Whole Blood 160 mg/dL (75-99)
[2022-04-23] MEDS ORDERED: ONDANSETRON 4 MG/2 ML VIAL IVP PRN (22:12)
[2022-04-23] MEDS ORDERED: NALOXONE 0.4 MG/ML 1 ML VIAL IV PRN (22:12)
[2022-04-23] MEDS ORDERED: MORPHINE SULFATE 4 MG/ML SYRINGE IV PRN (22:12)
[2022-04-23 23:56] LABS: Lipase 188 U/L (23-300); Phosphorus 3.7 mg/dL (2.5-4.5)
[2022-04-24] MEDS: DEXTROSE 5%-0.9% NACL 1,000 ML IV SCH ×3 (00:53→14:03)
[2022-04-24 01:45] LABS: Glucose,Whole Blood 138 mg/dL (75-99)
[2022-04-24 02:28] LABS: Appearance,Urine Clear (Clear); Bilirubin,Urine Negative (Negative); Blood,Urine Negative (Negative); Color,Urine Yellow; Glucose,Urine (UA) 2+ (Negative); Ketones,Urine Negative (Negative); Leukocyte Esterase,Urine Negative (Negative); Nitrite,Urine Negative (Negative); Protein,Urine Negative (Negative); Specific Gravity,Urine 1.036 (1.001-1.035)
[2022-04-24 07:49] LABS: Glucose,Whole Blood 178 mg/dL (75-99)
[2022-04-24] MEDS: INSULIN ASPART (NovoLOG) 100 UNIT/ML VIAL SQ SCH ×4 (07:53→20:58)
--- NOTE | 2022-04-24 07:55 | P.HPIM ---
History of Present Illness This is a pleasant 72 old male with no significant past medical history, He presents because of loss of weight and loss of appetite for the last 2-3 months. Patient states that he has not been eating for the last 3 days. He wants to see his primary care Dr. Simpson who diagnosed him with diabetes which is a new diagnosis for him. He denies any headache or weakness or numbness. No chest pain or dyspnea. No vomiting or diarrhea. He complains from some hesitancy in starting urination with some mild dysuria. Patient hemodynamically stable CBC, INR, BMP and liver enzymes are unremarkable except for mild Urine analysis is negative for infection EKG showing sinus tachycardia and tender than [address]-T changes CT of the abdomen and pelvis showing pancreatic body mass with metastatic disease throughout the liver and upper abdominal. Cholelithiasis chest x-ray: No acute process Review of Systems CONSTITUTIONAL: No fever, no malaise, no fatigue. HEENT: No recent visual problems or hearing problems. Denied any sore throat. CARDIOVASCULAR: No orthopnea, PND, no palpitations, no syncope. PULMONARY: No shortness of breath, no cough, no hemoptysis. GASTROINTESTINAL: No diarrhea, no nausea, no vomiting, no abdominal pain. Normoactive bowel sounds. NEUROLOGICAL: No headaches, no weakness, no numbness. HEMATOLOGICAL: Denies any bleeding or petechiae. GENITOURINARY: Denies any burning micturition, frequency, or urgency. MUSCULOSKELETAL/RHEUMATOLOGICAL: Denies any joint pain, swelling, or any muscle pain. ENDOCRINE: Denies any polyuria or polydipsia. Past Medical History Past Medical History: No Reported History, Diabetes Mellitus History of Any Multi-Drug Resistant Organisms: None Reported Past Surgical History: Coronary Bypass/CABG, Hernia Repair Additional Past Surgical History / Comment(s): quad bypass about 1984. Past Anesthesia/Blood Transfusion Reactions: No Reported Reaction Past Psychological History: No Psychological Hx Reported Smoking Status: Current every day smoker Past Alcohol Use History: Occasional Past Drug Use History: Marijuana Medications and Allergies Home Medications Medication Instructions Recorded Confirmed Type Aspirin EC [Ecotrin Low Dose] 81 mg PO DAILY 02/27/22 04/23/22 History glipiZIDE [Glucotrol XL] 10 mg PO DAILY 30 Days #30 tab 02/28/22 04/23/22 Rx metFORMIN HCL [Glucophage] 500 mg PO BID 30 Days #60 tab 02/28/22 04/23/22 Rx Ergocalciferol (Vitamin D2) 1,250 mcg PO TH 04/23/22 04/23/22 History [Drisdol (50,000 Iu)] Allergies Allergy/AdvReac Type Severity Reaction Status Date / Time No Known Allergies Allergy Verified 04/23/22 19:08 Physical Exam Vitals: Vital Signs Temp Pulse Pulse Resp BP BP Pulse Ox 04/24/22 01:42 98.0 F 97 16 124/86 99 04/24/22 00:00 83 121/76 04/23/22 20:00 72 128/74 99 04/23/22 19:52 84 15 114/83 100 04/23/22 17:17 97.6 F 104 H 20 96/74 98 Intake and Output 04/23/22 04/24/22 04/24/22 22:59 06:59 14:59 Output Total 900 Balance -900 Output: Urine 900 Other: Weight 47.627 kg -GENERAL: The patient is alert and oriented x3, not in any acute distress. Well developed, well nourished. Severely cachectic HEENT: Pupils are round and equally reacting to light. EOMI. No scleral icterus. No conjunctival pallor. Normocephalic, atraumatic. No pharyngeal erythema. No thyromegaly. CARDIOVASCULAR: S1 and S2 present. No murmurs, rubs, or gallops. PULMONARY: Chest is clear to auscultation, no wheezing or crackles. -ABDOMEN: Soft, mild periumbilical tenderness, normoactive bowel sounds. No palpable organomegaly. MUSCULOSKELETAL: No joint swelling or deformity. EXTREMITIES: No cyanosis, clubbing, or pedal edema. NEUROLOGICAL: Gross neurological examination did not reveal any focal deficits. SKIN: No rashes. No petechiae Results CBC & Chem 7: 04/23/22 17:32 04/23/22 17:32 Labs: Abnormal Lab Results - Last 24 Hours (Table) 04/23/22 04/23/22 04/23/22 Range/Units 17:32 17:32 17:32 Basophils # 0.3 H (0-0.2) k/uL APTT 21.7 L (22.0-30.0) sec Sodium 135 L (137-145) mmol/L Chloride 96 L (98-107) mmol/L Carbon Dioxide 35 H (22-30) mmol/L Glucose 53 L (74-99) mg/dL POC Glucose (mg/dL) (75-99) mg/dL AST 84 H (17-59) U/L ALT 52 H (4-49) U/L Alkaline Phosphatase 445 H (38-126) U/L Ur Specific Weston (1.001-1.035) Urine Glucose (UA) (Negative) 04/23/22 04/24/22 04/24/22 Range/Units 21:45 01:07 01:40 Basophils # (0-0.2) k/uL APTT (22.0-30.0) sec Sodium (137-145) mmol/L Chloride (98-107) mmol/L Carbon Dioxide (22-30) mmol/L Glucose (74-99) mg/dL POC Glucose (mg/dL) 160 H 138 H (75-99) mg/dL AST (17-59) U/L ALT (4-49) U/L Alkaline Phosphatase (38-126) U/L Ur Specific Weston 1.036 H (1.001-1.035) Urine Glucose (UA) 2+ H (Negative) 04/24/22 Range/Units 07:48 Basophils # (0-0.2) k/uL APTT (22.0-30.0) sec Sodium (137-145) mmol/L Chloride (98-107) mmol/L Carbon Dioxide (22-30) mmol/L Glucose (74-99) mg/dL POC Glucose (mg/dL) 178 H (75-99) mg/dL AST (17-59) U/L ALT (4-49) U/L Alkaline Phosphatase (38-126) U/L Ur Specific Weston (1.001-1.035) Urine Glucose (UA) (Negative) Assessment and Plan Assessment: Pancreatic Mass. mostly malignancywith metastasis to the liver, once prepped and abdominal lymphadenopathy Moderate to severe calories protein malnutrition Weakness and ataxia for the last 3 months secondary to above Dysuria with hesitancy, rule out urinary retention Recent diagnosis of diabetes Mild transaminitis Cholelithiasis Plan: This is a pleasant 72 old male who presents with pancreatic mass and cachexia Continue with D5 normal saline Hematology/oncology consult Dietary consult Check bladder scan Labs and medication were reviewed.. Continue same treatment. Continue with symptomatic treatment. Resume home medication. Monitor lytes and vitals. DVT and GI prophylaxis. Further recommendations depends on the clinical course of the patient DVT prophylaxis: Subcutaneous heparin GI Prophylaxis: Pepcid PT/OT: Pending Prognosis is guarded
[2022-04-24] MEDS: FAMOTIDINE 20 MG/2 ML VIAL IV SCH ×2 (08:30→22:08)
[2022-04-24] MEDS: HEPARIN SODIUM,PORCINE/PF 5,000 UNIT/0.5 ML SYRINGE SQ SCH ×2 (08:30→22:10)
[2022-04-24] MEDS: ASPIRIN 81 MG PO SCH (08:30)
[2022-04-24] MEDS ORDERED: HEPARIN SODIUM,PORCINE/PF 5,000 UNIT/0.5 ML SYRINGE SQ SCH (09:00)
[2022-04-24] MEDS ORDERED: RX INFO: IV CONTRAST WAS GIVEN 1 EACH MISC MISCELLANE PRN (12:10)
[2022-04-24 12:29] LABS: Glucose,Whole Blood 159 mg/dL (75-99)
[2022-04-24 13:40] LABS: Amylase 49 U/L (30-110); Lipase 135 U/L (23-300)
[2022-04-24 17:43] LABS: Glucose,Whole Blood 158 mg/dL (75-99)
--- NOTE | 2022-04-24 19:08 | NM ---
EXAMINATION TYPE: NM bone scan whole body DATE OF EXAM: 04/24/2022 COMPARISON: CT 04/23/2022, chest x-ray 04/23/2022 HISTORY: Metastatic disease, pancreatic carcinoma, metastasis to liver Delayed whole-body scanning was performed following the injection of 22.4 mCi Tc 99m MDP. Images acq uired 4 hours post injection. FINDINGS: Infiltration noted within the left upper extremity. Soft tissue uptake otherwise normal. Somewhat dim inished uptake within the skeleton. No evident metastasis or suspicious uptake. IMPRESSION: Metastatic disease to bone is not evident.
[2022-04-24 20:23] LABS: Glucose,Whole Blood 126 mg/dL (75-99)
--- NOTE | 2022-04-24 22:08 | P.CONS ---
History of Present Illness - Reason for Consult Consult date: 04/24/22 pancreatic cancer - History of Present Illness Mr. Deleon is a 72 year old man who has a known history of CABG in the 80s and PVD. He presented to hospital because over the past few months he has rapidly lost weight uniintentionally, not had energy and not feeling well. CT scans revealed a pancreatic head mass as well as what appeared to be metastatic disease intraperitoneal adenopathy. We have been asked to evaluate related to the picture of metastatic pancreatic cancer Review of Systems All systems: negative Constitutional: Reports as per HPI Past Medical History Past Medical History: Coronary Artery Disease (CAD), Diabetes Mellitus History of Any Multi-Drug Resistant Organisms: None Reported Past Surgical History: Coronary Bypass/CABG, Hernia Repair Additional Past Surgical History / Comment(s): quad bypass about 1984. R hand orthopedic Past Anesthesia/Blood Transfusion Reactions: No Reported Reaction Past Psychological History: No Psychological Hx Reported Smoking Status: Current every day smoker Past Alcohol Use History: Occasional Past Drug Use History: Marijuana Medications and Allergies Home Medications Medication Instructions Recorded Confirmed Type Aspirin EC [Ecotrin Low Dose] 81 mg PO DAILY 02/27/22 04/23/22 History glipiZIDE [Glucotrol XL] 10 mg PO DAILY 30 Days #30 tab 02/28/22 04/23/22 Rx metFORMIN HCL [Glucophage] 500 mg PO BID 30 Days #60 tab 02/28/22 04/23/22 Rx Ergocalciferol (Vitamin D2) 1,250 mcg PO TH 04/23/22 04/23/22 History [Drisdol (50,000 Iu)] Allergies Allergy/AdvReac Type Severity Reaction Status Date / Time No Known Allergies Allergy Verified 04/23/22 19:08 Physical Exam Vitals: Vital Signs Temp Pulse Pulse Resp BP BP Pulse Ox 04/24/22 20:01 98.1 F 87 18 106/77 99 04/24/22 14:00 97.5 F L 85 129/92 98 04/24/22 13:26 85 18 125/89 95 04/24/22 07:56 92 18 114/87 98 04/24/22 01:42 98.0 F 97 16 124/86 99 04/24/22 00:00 83 121/76 Intake and Output 04/24/22 04/24/22 04/24/22 06:59 14:59 22:59 Output Total 900 300 Balance -900 -300 Output: Urine 900 300 Other: Weight 47.627 kg - Constitutional General appearance: cooperative - EENT Eyes: EOMI ENT: NA/AT - Neck Neck: lymphadenopathy, normal ROM - Respiratory Respiratory: bilateral: diminished - Cardiovascular Rhythm: regularly irregular - Gastrointestinal General gastrointestinal: soft - Integumentary Integumentary: pale - Neurologic Neurologic: CNII-XII intact - Musculoskeletal Musculoskeletal: generalized weakness - Psychiatric Psychiatric: A&O x's 3 Results CBC & Chem 7: 04/23/22 17:32 04/23/22 17:32 Labs: Abnormal Lab Results - Last 24 Hours (Table) 04/23/22 04/24/22 04/24/22 Range/Units 17:32 01:07 01:40 Sodium 135 L (137-145) mmol/L Chloride 96 L (98-107) mmol/L Carbon Dioxide 35 H (22-30) mmol/L Glucose 53 L (74-99) mg/dL POC Glucose (mg/dL) 138 H (75-99) mg/dL AST 84 H (17-59) U/L ALT 52 H (4-49) U/L Alkaline Phosphatase 445 H (38-126) U/L CA 19-9 Antigen (0.0-34.9) U/mL Ur Specific Baylis 1.036 H (1.001-1.035) Urine Glucose (UA) 2+ H (Negative) 04/24/22 04/24/22 04/24/22 Range/Units 07:48 12:24 13:17 Sodium (137-145) mmol/L Chloride (98-107) mmol/L Carbon Dioxide (22-30) mmol/L Glucose (74-99) mg/dL POC Glucose (mg/dL) 178 H 159 H (75-99) mg/dL AST (17-59) U/L ALT (4-49) U/L Alkaline Phosphatase (38-126) U/L CA 19-9 Antigen >07340.0 H (0.0-34.9) U/mL Ur Specific [place] (1.001-1.035) Urine Glucose (UA) (Negative) 04/24/22 04/24/22 Range/Units 17:42 20:22 Sodium (137-145) mmol/L Chloride (98-107) mmol/L Carbon Dioxide (22-30) mmol/L Glucose (74-99) mg/dL POC Glucose (mg/dL) 158 H 126 H (75-99) mg/dL AST (17-59) U/L ALT (4-49) U/L Alkaline Phosphatase (38-126) U/L CA 19-9 Antigen (0.0-34.9) U/mL Ur Specific [place] (1.001-1.035) Urine Glucose (UA) (Negative) CT scan - abdomen: report reviewed CT scan - pelvis: report reviewed Assessment and Plan (1) Anorexia Current Visit: Yes Status: Acute Code(s): R63.0 - ANOREXIA SNOMED Code(s): 66991359 (2) Pancreatic mass Current Visit: Yes Status: Acute Code(s): K86.89 - OTHER SPECIFIED DISEASES OF PANCREAS SNOMED Code(s): 372410494 Plan: A tissue biopsy is needed for further diagnosis and recommendations, in the interim will complete staging for easy accessible biopsy. Discussed with patient and RN Ca19-9 Dr. Werner: I have completed the full history and physical and developed the impression and plan, agree with dictation, dictated as a scribe.
[2022-04-25] MEDS: DEXTROSE 5%-0.9% NACL 1,000 ML IV SCH ×3 (01:58→21:49)
[2022-04-25 07:03] LABS: Glucose,Whole Blood 173 mg/dL (75-99)
[2022-04-25] MEDS: ASPIRIN 81 MG PO SCH (09:13)
[2022-04-25] MEDS: FAMOTIDINE 20 MG/2 ML VIAL IV SCH ×2 (09:13→21:14)
[2022-04-25] MEDS: INSULIN ASPART (NovoLOG) 100 UNIT/ML VIAL SQ SCH ×4 (09:13→21:14)
[2022-04-25] MEDS: HEPARIN SODIUM,PORCINE/PF 5,000 UNIT/0.5 ML SYRINGE SQ SCH ×2 (09:13→21:14)
[2022-04-25 11:28] LABS: ALT 46 U/L (4-49); AST 55 U/L (17-59); African American GFR (CKD) >90 (>60 ml/min/1.73 sqM); Albumin 3.1 g/dL (3.5-5.0); Albumin/Globulin Ratio 1.2; Alkaline Phosphatase 392 U/L (38-126); Anion Gap 3 mmol/L; Blood Urea Nitrogen 7 mg/dL (9-20); Calcium 8.6 mg/dL (8.4-10.2); Carbon Dioxide 30 mmol/L (22-30); Chloride 102 mmol/L (98-107); Globulin 2.6 g/dL; Glucose 207 mg/dL (74-99); Non-African American GFR(CKD) >90 (>60 ml/min/1.73 sqM); Sodium 135 mmol/L (137-145); Total Bilirubin 0.6 mg/dL (0.2-1.3); Total Protein 5.7 g/dL (6.3-8.2)
[2022-04-25 12:00] LABS: Glucose,Whole Blood 297 mg/dL (75-99)
--- NOTE | 2022-04-25 13:41 | CT ---
EXAMINATION TYPE: CT chest w con DATE OF EXAM: 04/25/2022 COMPARISON: NONE HISTORY: Newly diagnosed pancreatic cancer CT DLP: 131.3 mGycm. Automated Exposure Control for Dose Reduction was Utilized. TECHNIQUE: CT scan of the thorax is performed following with IV Contrast, patient injected with 70cc mL of Isovue 300. FINDINGS: LUNGS: Focal mild linear scarring in the lingula. No suspicious noncalcified pulmonary nodules or mas ses. A few tiny benign calcified nodules or granulomas in the right lower lobe are present. No pleura l effusion or pneumothorax seen bilaterally. The tracheobronchial tree is patent. MEDIASTINUM: There are no greater than 1 cm hilar or mediastinal lymph nodes. No cardiomegaly or pe ricardial effusion is seen. There is bovine type aortic arch which is normal variant. Overlying aldrich al wires and mediastinal clips redemonstrated. OTHER: Heterogeneous hypodense masses consistent with hepatic metastatic disease redemonstrated. Hete rogeneous hypodense 3.0 x 2.4 cm mass in the proximal body of the pancreas axial image 64 with distal ductal dilatation is redemonstrated. Some intra-abdominal ascites is again seen. Large gallstone in gallbladder axial image 68 redemonstrated. Supraclavicular subcutaneous edema noted blurring fat plan es. IMPRESSION: No suspicious masses or adenopathy in the thorax to suggest metastatic disease to this lo cation.
[2022-04-25 16:16] VITALS: BMI 15.5
--- NOTE | 2022-04-25 16:50 | P.PN ---
Subjective Progress Note Date: 04/25/22 Principal diagnosis: Probable metastatic Pancreatic Cancer Ca 19-9 >[id number] Evidence of likely metastatic disease in liver, IR has been consulted Feeling a little better today Objective - Vital Signs Vital signs: Vital Signs Temp 97.9 F 04/25/22 12:43 Pulse 45 L 04/25/22 12:43 Resp 16 04/25/22 12:43 BP 116/83 04/25/22 12:43 Pulse Ox 98 04/25/22 12:43 FiO2 Intake & Output 04/24/22 04/25/22 04/25/22 18:59 06:59 18:59 Intake Total 1200 Output Total 300 Balance -300 1200 Weight 47.627 kg 47.627 kg Intake: Intake, IV Titration 1200 Amount Dextrose 5%-0.9% NaCl 1, 1200 000 ml @ 100 mls/hr IV . Q10H [facility] Rx#:[id number] Output: Urine 300 - Exam - Constitutional General appearance: cooperative - EENT Eyes: EOMI ENT: NA/AT - Neck Neck: lymphadenopathy, normal ROM - Respiratory Respiratory: bilateral: diminished - Cardiovascular Rhythm: regularly irregular - Gastrointestinal General gastrointestinal: soft - Integumentary Integumentary: pale - Neurologic Neurologic: CNII-XII intact - Musculoskeletal Musculoskeletal: generalized weakness - Psychiatric Psychiatric: A&O x's 3 - Labs CBC & Chem 7: 04/23/22 17:32 04/25/22 10:55 Labs: Abnormal Lab Results - Last 24 Hours (Table) 04/24/22 04/24/22 04/24/22 Range/Units 13:17 17:42 20:22 Sodium (137-145) mmol/L Potassium (3.5-5.1) mmol/L BUN (9-20) mg/dL Creatinine (0.66-1.25) mg/dL Glucose (74-99) mg/dL POC Glucose (mg/dL) 158 H 126 H (75-99) mg/dL Alkaline Phosphatase (38-126) U/L Total Protein (6.3-8.2) g/dL Albumin (3.5-5.0) g/dL CA 19-9 Antigen >89493.0 H (0.0-34.9) U/mL 04/25/22 04/25/22 04/25/22 Range/Units 07:01 10:55 11:58 Sodium 135 L (137-145) mmol/L Potassium 3.0 L (3.5-5.1) mmol/L BUN 7 L (9-20) mg/dL Creatinine 0.51 L (0.66-1.25) mg/dL Glucose 207 H (74-99) mg/dL POC Glucose (mg/dL) 173 H 297 H (75-99) mg/dL Alkaline Phosphatase 392 H (38-126) U/L Total Protein 5.7 L (6.3-8.2) g/dL Albumin 3.1 L (3.5-5.0) g/dL CA 19-9 Antigen (0.0-34.9) U/mL Assessment and Plan (1) Anorexia Current Visit: Yes Status: Acute Code(s): R63.0 - ANOREXIA SNOMED Code(s): 88101576 (2) Pancreatic mass Current Visit: Yes Status: Acute Code(s): K86.89 - OTHER SPECIFIED DISEASES OF PANCREAS SNOMED Code(s): 126835002 Plan: A tissue biopsy is needed for further diagnosis and recommendations, in the interim will complete staging for easy accessible biopsy. Discussed with patient and RN Ca19-[address] Werner: I have completed the full history and physical and developed the impression and plan, agree with dictation, dictated as a scribe.
[2022-04-25] MEDS ORDERED: POTASSIUM CHLORIDE ER 20 MEQ TAB.ER PO STA (17:25)
[2022-04-25 17:26] LABS: Glucose,Whole Blood 150 mg/dL (75-99)
[2022-04-25] MEDS: CHOLECALCIFEROL 125 MCG (5000 IU) TABLET PO SCH (18:03)
[2022-04-25] MEDS ORDERED: Potassium Replacement Protocol 1 EACH MISC MISCELLANE PRN (20:37)
[2022-04-25] MEDS ORDERED: Magnesium Replacement Protocol 1 EACH MISC MISCELLANE PRN (20:37)
[2022-04-25 20:39] LABS: Glucose,Whole Blood 108 mg/dL (75-99)
[2022-04-26 07:37] LABS: Glucose,Whole Blood 77 mg/dL (75-99)
[2022-04-26] MEDS: INSULIN ASPART (NovoLOG) 100 UNIT/ML VIAL SQ SCH ×4 (07:57→21:06)
[2022-04-26] MEDS: FAMOTIDINE 20 MG/2 ML VIAL IV SCH (08:39)
[2022-04-26] MEDS: CHOLECALCIFEROL 125 MCG (5000 IU) TABLET PO SCH (08:39)
[2022-04-26] MEDS: DEXTROSE 5%-0.9% NACL 1,000 ML IV SCH ×2 (08:40→21:07)
[2022-04-26] MEDS: HEPARIN SODIUM,PORCINE/PF 5,000 UNIT/0.5 ML SYRINGE SQ SCH ×2 (08:40→21:06)
[2022-04-26 11:32] LABS: HCT 39.3 % (39.6-50.0); HGB 13.1 g/dL (13.0-17.0); MCH 29.7 pg (27.0-32.0); MCHC 33.3 g/dL (32.0-37.0); MCV 89.1 fL (80.0-97.0); Mean Platelet Volume 10.9 fL (9.5-12.2); Platelet Count 233 X 10*3/uL (140-440); RBC 4.41 X 10*6/uL (4.40-5.60); RDW 14.8 % (11.5-14.5); WBC 6.14 X 10*3/uL (4.50-10.00)
[2022-04-26 11:34] LABS: African American GFR (CKD) 134.7 (60.0-200.0); Anion Gap 9.7 mmol/L (10.00-18.00); BUN/Creat Ratio 10.58 Ratio (12.00-20.00); Blood Urea Nitrogen 4.5 mg/dL (9.0-27.0); Calcium 8.1 mg/dL (8.7-10.3); Carbon Dioxide 29.7 mmol/L (20.0-27.5); Magnesium 1.7 mg/dL (1.5-2.4); Non-African American GFR(CKD) 116.2 (60.0-200.0); Potassium 3.1 mmol/L (3.5-5.5)
[2022-04-26 12:03] LABS: Glucose,Whole Blood 109 mg/dL (75-99)
[2022-04-26 12:14] LABS: Basophils # (M) 0.18 X 10*3/uL (0.00-0.10); Eosinophils # (M) 0.18 X 10*3/uL (0.04-0.35); Lymphocytes # (M) 0.98 X 10*3/uL (0.90-5.00); Monocytes # (M) 0.25 X 10*3/uL (0.20-1.00); Neutrophils # (M) 4.54 X 10*3/uL (2.00-8.90); Neutrophils % (M) 74 %; RBC Morphology NORMAL
[2022-04-26] MEDS ORDERED: Potassium Replacement Protocol 1 EACH MISC MISCELLANE PRN (14:24)
[2022-04-26] MEDS: POTASSIUM CHLORIDE ER 20 MEQ TAB.ER PO SCH ×2 (15:35→16:38)
[2022-04-26] MEDS ORDERED: MAGNESIUM SULFATE-D5W PMX 1 GM in DEXTROSE/WATER 1 100ML.BAG IVPB ONE (16:56)
[2022-04-26 16:58] LABS: Glucose,Whole Blood 143 mg/dL (75-99)
--- NOTE | 2022-04-26 16:58 | P.PN ---
Subjective This is a pleasant 72 old male with no significant past medical history, He presents because of loss of weight and loss of appetite for the last 2-3 months. Patient states that he has not been eating for the last 3 days. He wants to see his primary care Dr. Simpson who diagnosed him with diabetes which is a new diagnosis for him. He denies any headache or weakness or numbness. No chest pain or dyspnea. No vomiting or diarrhea. He complains from some hesitancy in starting urination with some mild dysuria. Patient hemodynamically stable CBC, INR, BMP and liver enzymes are unremarkable except for mild Urine analysis is negative for infection EKG showing sinus tachycardia and tender than [address]-T changes CT of the abdomen and pelvis showing pancreatic body mass with metastatic disease throughout the liver and upper abdominal. Cholelithiasis chest x-ray: No acute process 04/25/2022 Patient remains with poor appetite, no other specific symptoms like more chest pain or abdominal pain. CT of the chest showing no evidence of metastatic disease. No potassium replaced per protocol IR team were consulted for biopsy of the pancreatic mass 04/26/2022 Patient a little bit last night but not this morning, I still have some poor appetite although he is trying to encourage himself. No other new complaints. Vitals and labs stable. Low potassium and magnesium replaced per protocol. Patient is going for pancreatic biopsy with IR team on Thursday Objective - Vital Signs Vital signs: Vital Signs Temp 97.3 F L 04/26/22 05:00 Pulse 81 04/26/22 08:40 Resp 16 04/26/22 08:40 BP 122/86 04/26/22 05:00 Pulse Ox 100 04/26/22 05:00 FiO2 Intake & Output 04/25/22 04/26/22 04/26/22 18:59 06:59 18:59 Intake Total 1200 1200 Output Total 600 Balance 1200 600 Weight 47.627 kg Intake: Intake, IV Titration 1200 1200 Amount Dextrose 5%-0.9% NaCl 1, 1200 1200 000 ml @ 100 mls/hr IV . Q10H [facility] Rx#:[id number] Output: Urine 600 Other: Voiding Method Toilet Toilet Urinal Urinal - Exam -GENERAL: The patient is alert and oriented x3, not in any acute distress. Severely cachectic sick HEENT: Pupils are round and equally reacting to light. EOMI. No scleral icterus. No conjunctival pallor. Normocephalic, atraumatic. No pharyngeal erythema. No thyromegaly. CARDIOVASCULAR: S1 and S2 present. No murmurs, rubs, or gallops. PULMONARY: Chest is clear to auscultation, no wheezing or crackles. ABDOMEN: Soft, nontender, nondistended, normoactive bowel sounds. No palpable organomegaly. MUSCULOSKELETAL: No joint swelling or deformity. EXTREMITIES: No cyanosis, clubbing, or pedal edema. NEUROLOGICAL: Gross neurological examination did not reveal any focal deficits. SKIN: No rashes. no petechiae. - Labs CBC & Chem 7: 04/26/22 06:44 04/26/22 06:44 Labs: Abnormal Lab Results - Last 24 Hours (Table) 04/25/22 04/25/22 04/25/22 Range/Units 10:55 11:58 17:25 Sodium 135 L (137-145) mmol/L Potassium 3.0 L (3.5-5.1) mmol/L BUN 7 L (9-20) mg/dL Creatinine 0.51 L (0.66-1.25) mg/dL Glucose 207 H (74-99) mg/dL POC Glucose (mg/dL) 297 H 150 H (75-99) mg/dL Alkaline Phosphatase 392 H (38-126) U/L Total Protein 5.7 L (6.3-8.2) g/dL Albumin 3.1 L (3.5-5.0) g/dL 04/25/22 Range/Units 20:38 Sodium (137-145) mmol/L Potassium (3.5-5.1) mmol/L BUN (9-20) mg/dL Creatinine (0.66-1.25) mg/dL Glucose (74-99) mg/dL POC Glucose (mg/dL) 108 H (75-99) mg/dL Alkaline Phosphatase (38-126) U/L Total Protein (6.3-8.2) g/dL Albumin (3.5-5.0) g/dL Assessment and Plan Assessment: Pancreatic Mass. mostly malignancywith metastasis to the liver, once prepped and abdominal lymphadenopathy Moderate to severe calories protein malnutrition Weakness and ataxia for the last 3 months secondary to above Dysuria with hesitancy, rule out urinary retention Recent diagnosis of diabetes Mild transaminitis Cholelithiasis Plan: This is a pleasant 72 old male who presents with pancreatic mass and cachexia Continue with D5 normal saline Hematology/oncology consult Dietary consult Check bladder scan Labs and medication were reviewed.. Continue same treatment. Continue with symptomatic treatment. Resume home medication. Monitor lytes and vitals. DVT and GI prophylaxis. Further recommendations depends on the clinical course of the patient DVT prophylaxis: Subcutaneous heparin GI Prophylaxis: Pepcid PT/OT: Pending Prognosis is guarded
[2022-04-26] MEDS ORDERED: MELATONIN 5 MG TABLET PO PRN (19:44)
[2022-04-26 20:47] LABS: Glucose,Whole Blood 122 mg/dL (75-99)
[2022-04-26] MEDS: FAMOTIDINE 20 MG TAB PO SCH (21:06)
[2022-04-26] MEDS: SENNOSIDES 8.6 MG TAB PO PRN (21:06)
[2022-04-27 02:07] LABS: Glucose,Whole Blood 149 mg/dL (75-99)
[2022-04-27] MEDS: DEXTROSE 5%-0.9% NACL 1,000 ML IV SCH ×2 (04:49→17:04)
[2022-04-27 07:18] LABS: Glucose,Whole Blood 210 mg/dL (75-99)
[2022-04-27] MEDS: HEPARIN SODIUM,PORCINE/PF 5,000 UNIT/0.5 ML SYRINGE SQ SCH ×2 (08:45→14:04)
[2022-04-27] MEDS: FAMOTIDINE 20 MG TAB PO SCH ×2 (08:45→21:09)
[2022-04-27] MEDS: CHOLECALCIFEROL 125 MCG (5000 IU) TABLET PO SCH (08:45)
[2022-04-27] MEDS: INSULIN ASPART (NovoLOG) 100 UNIT/ML VIAL SQ SCH ×4 (08:45→21:08)
[2022-04-27 11:18] LABS: Glucose,Whole Blood 184 mg/dL (75-99)
[2022-04-27 11:43] LABS: Magnesium 1.8 mg/dL (1.5-2.4)
[2022-04-27 11:58] LABS: African American GFR (CKD) 126.4 (60.0-200.0); Anion Gap 11.1 mmol/L (10.00-18.00); BUN/Creat Ratio 9.4 Ratio (12.00-20.00); Blood Urea Nitrogen 4.7 mg/dL (9.0-27.0); Calcium 8.1 mg/dL (8.7-10.3); Carbon Dioxide 27.9 mmol/L (20.0-27.5); Potassium 3.2 mmol/L (3.5-5.5)
[2022-04-27] MEDS ORDERED: Potassium Replacement Protocol 1 EACH MISC MISCELLANE PRN (14:02)
[2022-04-27] MEDS: SENNOSIDES 8.6 MG TAB PO PRN (14:25)
[2022-04-27] MEDS: POTASSIUM CHLORIDE ER 20 MEQ TAB.ER PO SCH ×2 (14:25→15:13)
[2022-04-27 16:18] LABS: Glucose,Whole Blood 211 mg/dL (75-99)
[2022-04-27 20:17] LABS: Glucose,Whole Blood 170 mg/dL (75-99)
[2022-04-28 01:35] LABS: Glucose,Whole Blood 99 mg/dL (75-99)
[2022-04-28] MEDS: DEXTROSE 5%-0.9% NACL 1,000 ML IV SCH ×2 (05:09→11:46)
[2022-04-28] MEDS: HEPARIN SODIUM,PORCINE/PF 5,000 UNIT/0.5 ML SYRINGE SQ SCH (06:49)
[2022-04-28 07:00] LABS: Glucose,Whole Blood 124 mg/dL (75-99)
[2022-04-28] MEDS: INSULIN ASPART (NovoLOG) 100 UNIT/ML VIAL SQ SCH ×2 (07:31→13:11)
--- NOTE | 2022-04-28 07:31 | P.PN ---
Subjective This is a pleasant 72 old male with no significant past medical history, He presents because of loss of weight and loss of appetite for the last 2-3 months. Patient states that he has not been eating for the last 3 days. He wants to see his primary care Dr. Simspon who diagnosed him with diabetes which is a new diagnosis for him. He denies any headache or weakness or numbness. No chest pain or dyspnea. No vomiting or diarrhea. He complains from some hesitancy in starting urination with some mild dysuria. Patient hemodynamically stable CBC, INR, BMP and liver enzymes are unremarkable except for mild Urine analysis is negative for infection EKG showing sinus tachycardia and tender than [address]-T changes CT of the abdomen and pelvis showing pancreatic body mass with metastatic disease throughout the liver and upper abdominal. Cholelithiasis chest x-ray: No acute process 04/25/2022 Patient remains with poor appetite, no other specific symptoms like more chest pain or abdominal pain. CT of the chest showing no evidence of metastatic disease. No potassium replaced per protocol IR team were consulted for biopsy of the pancreatic mass 04/26/2022 Patient a little bit last night but not this morning, I still have some poor appetite although he is trying to encourage himself. No other new complaints. Vitals and labs stable. Low potassium and magnesium replaced per protocol. Patient is going for pancreatic biopsy with IR team on Thursday04/27/2022 Patient appetite is picking up slightly. Patient's trying to eat. Distal hasn't constipation. He remains on D5 normal saline at 50 mL/h. Patient is planned for pancreatic mass biopsy by IR team per oncology team plan. Objective - Vital Signs Vital signs: Vital Signs Temp 97.5 F L 04/27/22 05:00 Pulse 91 04/27/22 08:00 Resp 16 04/27/22 08:00 BP 112/67 04/27/22 07:20 Pulse Ox 99 04/27/22 05:00 FiO2 Intake & Output 04/26/22 04/27/22 04/27/22 18:59 06:59 18:59 Intake Total 1462 118 Output Total 500 950 Balance 962 -950 118 Intake: Intake, IV Titration 1000 Amount Dextrose 5%-0.9% NaCl 1, 900 000 ml @ 100 mls/hr IV . Q10H [facility] OF [facility] Rx#:[id number] Magnesium Sulfate-D5w Pmx 100 1 gm In Dextrose/Water 1 100ml.bag @ 100 mls/hr IVPB ONCE ONE Rx#: [id number] Oral 462 118 Output: Urine 500 950 Other: Voiding Method Toilet Toilet Toilet Urinal Urinal Urinal # Voids 3 1 # Bowel Movements 1 - Exam -GENERAL: The patient is alert and oriented x3, not in any acute distress. Severely cachectic sick HEENT: Pupils are round and equally reacting to light. EOMI. No scleral icterus. No conjunctival pallor. Normocephalic, atraumatic. No pharyngeal erythema. No thyromegaly. CARDIOVASCULAR: S1 and S2 present. No murmurs, rubs, or gallops. PULMONARY: Chest is clear to auscultation, no wheezing or crackles. ABDOMEN: Soft, nontender, nondistended, normoactive bowel sounds. No palpable organomegaly. MUSCULOSKELETAL: No joint swelling or deformity. EXTREMITIES: No cyanosis, clubbing, or pedal edema. NEUROLOGICAL: Gross neurological examination did not reveal any focal deficits. SKIN: No rashes. no petechiae. - Labs CBC & Chem 7: 04/26/22 06:44 04/27/22 07:01 Labs: Abnormal Lab Results - Last 24 Hours (Table) 04/26/22 04/26/22 04/26/22 Range/Units 06:44 06:44 12:01 Basophils # (Manual) 0.18 H (0.00-0.10) X 10*3/uL Potassium 3.1 L (3.5-5.5) mmol/L Carbon Dioxide 29.7 H (20.0-27.5) mmol/L Anion Gap 9.70 L (10.00-18.00) mmol/L BUN 4.5 L (9.0-27.0) mg/dL Creatinine 0.4 L (0.6-1.5) mg/dL BUN/Creatinine Ratio 10.58 L (12.00-20.00) Ratio Glucose 56 L (70-110) mg/dL POC Glucose (mg/dL) 109 H (75-99) mg/dL Calcium 8.1 L (8.7-10.3) mg/dL 04/26/22 04/26/22 04/27/22 Range/Units 16:57 20:45 02:06 Basophils # (Manual) (0.00-0.10) X 10*3/uL Potassium (3.5-5.5) mmol/L Carbon Dioxide (20.0-27.5) mmol/L Anion Gap (10.00-18.00) mmol/L BUN (9.0-27.0) mg/dL Creatinine (0.6-1.5) mg/dL BUN/Creatinine Ratio (12.00-20.00) Ratio Glucose (70-110) mg/dL POC Glucose (mg/dL) 143 H 122 H 149 H (75-99) mg/dL Calcium (8.7-10.3) mg/dL 04/27/22 04/27/22 Range/Units 07:17 11:16 Basophils # (Manual) (0.00-0.10) X 10*3/uL Potassium (3.5-5.5) mmol/L Carbon Dioxide (20.0-27.5) mmol/L Anion Gap (10.00-18.00) mmol/L BUN (9.0-27.0) mg/dL Creatinine (0.6-1.5) mg/dL BUN/Creatinine Ratio (12.00-20.00) Ratio Glucose (70-110) mg/dL POC Glucose (mg/dL) 210 H 184 H (75-99) mg/dL Calcium (8.7-10.3) mg/dL Assessment and Plan Assessment: Pancreatic Mass. mostly malignancywith metastasis to the liver, once prepped and abdominal lymphadenopathy Moderate to severe calories protein malnutrition Weakness and ataxia for the last 3 months secondary to above Dysuria with hesitancy, rule out urinary retention Recent diagnosis of diabetes Mild transaminitis Cholelithiasis Plan: This is a pleasant 72 old male who presents with pancreatic mass and cachexia Continue with D5 normal saline Hematology/oncology consult Dietary consult Patient will need pancreatic mass biopsy. IR consult in a Place Labs and medication were reviewed.. Continue same treatment. Continue with symptomatic treatment. Resume home medication. Monitor lytes and vitals. DVT and GI prophylaxis. Further recommendations depends on the clinical course of the patient DVT prophylaxis: Subcutaneous heparin GI Prophylaxis: Pepcid PT/OT: Pending Prognosis is guarded
[2022-04-28 08:11] LABS: African American GFR (CKD) >90 (>60 ml/min/1.73 sqM); Anion Gap 3 mmol/L; Blood Urea Nitrogen 4 mg/dL (9-20); Calcium 8.1 mg/dL (8.4-10.2); Carbon Dioxide 29 mmol/L (22-30); Chloride 105 mmol/L (98-107); Glucose 123 mg/dL (74-99); Magnesium 1.7 mg/dL (1.6-2.3); Non-African American GFR(CKD) >90 (>60 ml/min/1.73 sqM); Potassium 3.6 mmol/L (3.5-5.1); Sodium 137 mmol/L (137-145)
[2022-04-28 08:47] LABS: HCT 41.6 % (39.0-53.0); HGB 13.7 gm/dL (13.0-17.5); MCH 30.3 pg (25.0-35.0); Mean Platelet Volume 8.2; Platelet Count 226 k/uL (150-450); RBC 4.53 m/uL (4.30-5.90); RDW 14.8 % (11.5-15.5); WBC 7.1 k/uL (3.8-10.6)
[2022-04-28] MEDS ORDERED: Magnesium Replacement Protocol 1 EACH MISC MISCELLANE PRN (09:09)
[2022-04-28 09:36] LABS: Eosinophils # (M) 0.21 k/uL (0-0.7); Lymphocytes # (M) 0.64 k/uL (1.0-4.8); Monocytes # (M) 0.43 k/uL (0-1.0); Neutrophils # (M) 5.82 k/uL (1.3-7.7); Neutrophils % (M) 82 %; Nucleated Red Blood Cells 0 /100 WBC (0-0); RBC Morphology Normal; Total Cells Counted 100
[2022-04-28 10:32] VITALS: RESP 16
--- NOTE | 2022-04-28 10:44 | CDI ---
Documentation Clarification Form Date: 04/28/2022 10:24:35 AM From: Tete Jimenez RN CCDS Admit Date: 04/23/2022 11:55:00 PM Patient Name: Roderick Deleon Visit Number: [id number] Discharge Date: ATTENTION: The Clinical Documentation Specialists (CDI) and [facility] Coding Staff appreciate your assistance in clarifying documentation. Please respond to the clarification below the line at the bottom and electronically sign. The CDI & [facility] Coding staff will review the response and follow-up if needed. Please note: Queries are made part of the Legal Health Record. If you have any questions, please contact the author of this message via ITS. Dr. Russo E Sheet There is documentation of Moderate to Severe, 04/24 04/27, H&P and Medicine progress notes. Additional information regarding the specificity is requested. History/Risk Factors: 72-year-old male presents to the ED with weight loss and loss of appetite for the last 2-3 months. Medical History: Recently diagnosed with DM and Coronary Bypass. 04/24, H&P. Clinical Indicators: Dietitian consult: 04/25 Appetite is poor, duration 1-3 months. Diet concerns: Difficulty chewing and swallowing. Patient requesting pureed diet at this time. Nutritional Concerns: Intake poor. Nutritional concerns, Difficulty swallowing and underfeeding. Physical Findings: Emaciated, Underweight and wounds. Additional comments: Emaciated, Cachectic appearance / significant weight loss Stage 2 PI sacrum. Needs in Kcals : 30-35 Kcals/kg. Energy Needs: 2200- 2550 kcal. Estimated Protein 1.5-2.0 grams/kg. Estimated protein Needs 109-145 grams per day. Nutritional Diagnosis: Malnutrition, Severe chronic malnutrition. Evidenced by: Significant weight loss of 54.5% from 230# UBW: severe muscle /fat wasting body wide. Treatment: Supplements: Glucerna TID; Eulalio BID Diet consistent carbohydrate, textures as tolerated plus high kcal supp 3x daily. Monitor: PO intake, supplement acceptance, Blood Glucose levels. Can you please clarify the specificity of Malnutrition? [ ] Moderate Protein Calorie Malnutrition [ ] Severe Protein Calorie Malnutrition [ ] Other, please specify [ ] Unable to determine (Template Last Revised: January 2021) Severe Protein Calorie Malnutrition MTDD
--- NOTE | 2022-04-28 10:54 | CDI ---
Documentation Clarification Form Date: 04/28/2022 10:46:20 AM From: Tete Jimenez Admit Date: 04/23/2022 11:55:00 PM Patient Name: Roderick Deleon Visit Number: [id number] Discharge Date: ATTENTION: The Clinical Documentation Specialists (CDI) and [facility] Coding Staff appreciate your assistance in clarifying documentation. Please respond to the clarification below the line at the bottom and electronically sign. The CDI & [facility] Coding staff will review the response and follow-up if needed. Please note: Queries are made part of the Legal Health Record. If you have any questions, please contact the author of this message via ITS. Dr. Karan Landers A Sacrum pressure ulcer is documented by Wound Care 04/24, Nursing pressure injury assessment. Based on this information and the findings below, is there an additional diagnosis that is clinically appropriate for this patient? History/Risk Factors: 72-year-old male presents to the ED with weight loss and loss of appetite for the last 2-3 months. Medical History: Recently diagnosed with DM and Coronary Bypass. 04/24, H&P. Clinical Indicators: 04/25 Dietitian consult: Significant weight low of 54.5% from 230 pounds. Severe muscle / fat wasting body wide. Location: Sacrum Wound description: Wound margins distinct. Treatment: Opitfoam, Absorbant underpad check hourly. Consults: Is there an additional diagnosis that is clinically appropriate for this patient? [ ] Sacrum Pressure Ulcer Stage 2 [ ] Other condition, please specify [ ] Unable to determine Clinical Definitions: Stage 1 Pressure Ulcer: intact skin, non-blanching redness of local area Stage 2 Pressure Ulcer: Partial thickness, loss of dermis, pink wound bed Stage 3 Pressure Ulcer: Full thickness tissue loss Stage 4 Pressure Ulcer: Full thickness tissue loss with exposed bone, tendon, or muscle. Unstageable pressure ulcer: Full thickness tissue loss in which the base of the ulcer is covered by slough (yellow, mark, johnson, green or brown) and/or eschar (mark, brown or black) in the wound bed. (Template Last Revised: January 2021) Sacrum Pressure Ulcer Stage 2 MTDD
[2022-04-28] MEDS: FAMOTIDINE 20 MG TAB PO SCH (11:15)
[2022-04-28] MEDS: MAGNESIUM SULFATE-D5W PMX 1 GM in DEXTROSE/WATER 1 100ML.BAG IVPB SCH ×2 (11:15→13:11)
[2022-04-28] MEDS: CHOLECALCIFEROL 125 MCG (5000 IU) TABLET PO SCH (11:15)
[2022-04-28 11:28] LABS: Glucose,Whole Blood 140 mg/dL (75-99)
--- NOTE | 2022-04-28 12:04 | CT ---
EXAMINATION TYPE: CT biopsy liver DATE OF EXAM: 04/28/2022 COMPARISON: NONE HISTORY: Liver lesions CT DLP: 581mGycm The procedure was explained to the patient. The risks, complications, benefits, and alternatives wer e discussed and any questions were answered. Informed consent was obtained. Patient was placed supi ne on the CT table and prepped and draped in the usual sterile fashion. All elements of maximal barrier and sterile technique utilized. Utilizing CT guidance, an 18 gauge core biopsy needle access into the right lobe of the liver was ac hieved and a two18 gauge core sample was obtained. The patient was stable throughout the procedure a nd remained stable upon discharge. IMPRESSION: 1. Successful 18 gauge core biopsy of the liver.
[2022-04-28 15:14] VITALS: BP 127/90; PULSE 97; TEMP 98.2
--- NOTE | 2022-04-28 17:18 | P.PN ---
Subjective Progress Note Date: 04/28/22 Principal diagnosis: pancreatic mass, liver lesions In f/u today pt has no new c/o, denies fever, has no appetite, denies nausea or vomiting, chest pain, SANJU, acute changes in bowel or bladder Objective - Vital Signs Vital signs: Vital Signs Temp 97.6 F 04/28/22 05:00 Pulse 91 04/28/22 11:00 Resp 16 04/28/22 10:48 BP 110/81 04/28/22 11:00 Pulse Ox 100 04/28/22 11:00 FiO2 Intake & Output 04/27/22 04/28/22 04/28/22 18:59 06:59 18:59 Intake Total 236 1200 Output Total 475 700 400 Balance -239 500 -400 Intake: Intake, IV Titration 1200 Amount Dextrose 5%-0.9% NaCl 1, 1200 000 ml @ 50 mls/hr IV . Q20H [facility] Rx#:[id number] Oral 236 Output: Urine 475 700 400 Other: Voiding Method Toilet Toilet Urinal Urinal # Voids 2 - Constitutional Constitutional Comment(s): looks much older then stated age General appearance: Present: cooperative, no acute distress, thin - EENT Eyes: Present: anicteric sclerae, EOMI - Respiratory Details: resp even and unlabored at rest - Peripheral edema leg Peripheral Edema: bilateral: None - Gastrointestinal General gastrointestinal: Present: hepatomegaly (2FB belo costal margin, very hard liver edge, tender), normal bowel sounds, scaphoid - Integumentary Integumentary Comment(s): severe bruising on arms noted - Neurologic Neurologic: Present: CNII-XII intact (grossly) - Psychiatric Psychiatric: Present: A&O x's 3, appropriate affect, intact judgment & insight - Labs CBC & Chem 7: 04/28/22 07:35 04/28/22 07:35 Labs: Abnormal Lab Results - Last 24 Hours (Table) 04/27/22 04/27/22 04/27/22 Range/Units 07:01 16:17 20:16 Lymphocytes # (Manual) (1.0-4.8) k/uL Potassium 3.2 L (3.5-5.5) mmol/L Carbon Dioxide 27.9 H (20.0-27.5) mmol/L BUN 4.7 L (9.0-27.0) mg/dL Creatinine 0.5 L (0.6-1.5) mg/dL BUN/Creatinine Ratio 9.40 L (12.00-20.00) Ratio Glucose 220 H (70-110) mg/dL POC Glucose (mg/dL) 211 H 170 H (75-99) mg/dL Calcium 8.1 L (8.7-10.3) mg/dL 04/28/22 04/28/22 04/28/22 Range/Units 06:57 07:35 07:35 Lymphocytes # (Manual) 0.64 L (1.0-4.8) k/uL Potassium (3.5-5.5) mmol/L Carbon Dioxide (20.0-27.5) mmol/L BUN 4 L (9.0-27.0) mg/dL Creatinine 0.40 L (0.6-1.5) mg/dL BUN/Creatinine Ratio (12.00-20.00) Ratio Glucose 123 H (70-110) mg/dL POC Glucose (mg/dL) 124 H (75-99) mg/dL Calcium 8.1 L (8.7-10.3) mg/dL Assessment and Plan (1) Liver lesion Current Visit: Yes Status: Acute Priority: High Code(s): K76.9 - LIVER DISEASE, UNSPECIFIED SNOMED Code(s): 405694418 (2) Pancreatic mass Current Visit: Yes Status: Acute Priority: High Code(s): K86.89 - OTHER SPECIFIED DISEASES OF PANCREAS SNOMED Code(s): 776049875 Plan: Liver biopsy today. Pt is ok from Hem/Onc to be discharged to home after procedure once deemed stable from Attending. Did discuss case with Attending WIRE DRAWING SETTER. Ca19.9 >10,000. Pending biopsy confirmation of malignancy. Final diagnosis, treatment options, prognosis will be discussed at follow up appt. Pt verbalized understanding the plan. attests: I have preformed H&P, seen and examined patient, developed impression and plan of care. Discussed with dictator. Agree with documentation, dictated as a scribe.
--- NOTE | 2022-04-30 00:15 | P.DS ---
Providers Date of admission: 04/23/22 23:55 Expected date of discharge: 04/28/22 Attending physician: Karan Landers MD Consults: 04/23/22 22:12 Consult Physician Urgent Consulting Provider: Durga Willson Consult Reason/Comments: Pancreatic mass with metastases Do you want consulting provider notified?: Yes, Notify in am Primary care physician: Fany Villalobos Hospital Course: Final diagnosis Pancreatic Mass. mostly malignancy with metastasis to the liver, abdominal lymphadenopathy severe calories protein malnutrition with a bmi of 15.5 sacral pressure ulcer stage II Weakness and ataxia for the last 3 months secondary to above Dysuria with hesitancy, rule out urinary retention Recent diagnosis of diabetes Mild transaminitis Cholelithiasis Discharge disposition Patient is being discharged in a stable condition with guarded prognosis to home. Patient will follow-up with Dr. Soares in the outpatient setting upon discharge. Patient is to follow up with DR. Willson as scheduled. Total time taken is greater than 35 minutes. Hospital Course This is a 72-year-old male who was recently admitted with weight loss and abdominal pain and loss of appetite and was being closely monitored. oncology following and IR and patient had liver biopsy and will be following up with oncology outpatient for results and further treatment. Currently no reports of chest pain, shortness of breath, or palpitations. Patient is afebrile. No reports of nausea or vomiting and patient is tolerating diet. Patient will be discharged home today. Physical exam: Gen: This is a 72 year old male, extremely thin built, cachetic HEENT: Head is atraumatic, normocephalic. Pupils equal, round. Sclerae is anicteric. NECK: Supple. No JVD. No lymphadenopathy. No thyromegaly. LUNGS: Clear to auscultation. No wheezes or rhonchi. No intercostal retractions. HEART: Regular rate and rhythm. No murmur. ABDOMEN: Soft. Bowel sounds are present. No masses. No tenderness. EXTREMITIES: No pedal edema. No calf tenderness. NEUROLOGICAL: Patient is awake, alert and oriented x3. Cranial nerves 2 through 12 are grossly intact. Please refer to medication reconciliation sheet for a list of medications. The impression and plan of care has been dictated by Ela Lagos, Nurse Practitioner as directed. Dr. Berry MD I have performed a history and examination and MDM of this patient, discussed the same with the dictator, and agree with the dictator's assessment and plan as written ,documented as a scribe. Based on total visit time, I have performed more than 50% of the visit. Patient Condition at Discharge: Poor Plan - Discharge Summary New Discharge Prescriptions: Continue Aspirin EC [Ecotrin Low Dose] 81 mg PO DAILY metFORMIN HCL [Glucophage] 500 mg PO BID 30 Days #60 tab glipiZIDE [Glucotrol XL] 10 mg PO DAILY 30 Days #30 tab Ergocalciferol (Vitamin D2) [Drisdol (50,000 Iu)] 1,250 mcg PO TH Discharge Medication List Aspirin EC [Ecotrin Low Dose] 81 mg PO DAILY 02/27/22 [History] glipiZIDE [Glucotrol XL] 10 mg PO DAILY 30 Days #30 tab 02/28/22 [Rx] metFORMIN HCL [Glucophage] 500 mg PO BID 30 Days #60 tab 02/28/22 [Rx] Ergocalciferol (Vitamin D2) [Drisdol (50,000 Iu)] 1,250 mcg PO TH 04/23/22 [History] Follow up Appointment(s)/Referral(s): Durga Willson MD [STAFF PHYSICIAN] - 05/07/22 5:15 pm Wilfredo Soares MD [Primary Care Provider] - 05/06/22 10:30 am [facility], [NON-STAFF] - 1 Week Patient Instructions/Handouts: Percutaneous Liver Biopsy (DC) Activity/Diet/Wound Care/Special Instructions: Activity Limited until follow-up Follow-up with primary care provider on discharge Follow-up with oncology outpatient as discussed and scheduled Continue taking medications as prescribed Continue consistent carb diet and hold metformin for 1-[address] Discharge Disposition: HOME WITH HOME HEALTH SERVICES
== END 2022-04-28 16:40 | disposition home health service (06) | DRG 435 ==
LOC: EC 16:51 → 5NMEDONC 23:55
PROVIDERS: ADMIT Internal Medicine; ATTEND Internal Medicine
PROC: 0FB13ZX Excision of Right Lobe Liver, Percutaneous Approach, Diagnostic (ICD-10-PCS; principal; 2022-04-28)
DX: C25.1 Malignant neoplasm of body of pancreas (principal); E43 Unspecified severe protein-calorie malnutrition; Z68.1 Body mass index [BMI] 19.9 or less, adult; R64 Cachexia; C78.7 Secondary malignant neoplasm of liver and intrahepatic bile duct; L89.152 Pressure ulcer of sacral region, stage 2; R59.0 Localized enlarged lymph nodes; K80.20 Calculus of gallbladder without cholecystitis without obstruction; R27.0 Ataxia, unspecified; I25.10 Atherosclerotic heart disease of native coronary artery without angina pectoris; E11.65 Type 2 diabetes mellitus with hyperglycemia; F17.200 Nicotine dependence, unspecified, uncomplicated; E11.51 Type 2 diabetes mellitus with diabetic peripheral angiopathy without gangrene; Z95.1 Presence of aortocoronary bypass graft; Z79.84 Long term (current) use of oral hypoglycemic drugs; Z79.82 Long term (current) use of aspirin
CPT/HCPCS: 36415; 47000; 51798; 71046; 71260; 74177; 77012; 78306; 80048; 80053; 81003; 82150; 83605; 83690; 83735; 84100; 84153; 84443; 84484; 85025; 85610; 85730; 86301; 88307; 88341; 88342; 93005; 96361; 96374; 96375; 99285

== ENCOUNTER 2022-05-05 16:54 | Observation (INO) | payer MEDICARE, OTHER ==
[2022-05-05] MEDS ORDERED: SODIUM CHLORIDE 0.9% 1,000 ML IV STA (21:26)
--- NOTE | 2022-05-05 21:54 | ED ---
Weakness HPI - General Chief complaint: Weakness Stated complaint: Weight Loss/Loss of Mobility Time Seen by Provider: 05/05/22 20:08 Source: patient, RN notes reviewed, old records reviewed Mode of arrival: ambulatory Limitations: no limitations - History of Present Illness Initial comments: This is a 72-year-old male recent hospital admission patient presents today for failure to thrive and inability to ambulate inability take care of himself. Patient has no travel history or sick contacts. Mild nausea no vomiting again he is of a recent hospital admission with diagnosis of severe weight loss malnutrition pancreatic mass likely tumor with metastasis. No current treatment. No significant pain. MD Complaint: generalized weakness, lack of energy, difficulty walking (Patient unable to do activities of daily living at home) -: hour(s) Location: generalized Severity: moderate Severity scale (1-10): 3 Quality: aching Consistency: constant Improves with: none Worsens with: none Context: recent illness, history of similar Associated Symptoms: confusion, loss of appetite, nausea/vomiting - Related Data Home Medications Medication Instructions Recorded Confirmed Aspirin EC [Ecotrin Low Dose] 81 mg PO DAILY 02/27/22 05/05/22 Ergocalciferol (Vitamin D2) 1,250 mcg PO TH 04/23/22 05/05/22 [Drisdol (50,000 Iu)] Previous Rx's Medication Instructions Recorded glipiZIDE [Glucotrol XL] 10 mg PO DAILY 30 Days #30 tab 02/28/22 metFORMIN HCL [Glucophage] 500 mg PO BID 30 Days #60 tab 02/28/22 Allergies Allergy/AdvReac Type Severity Reaction Status Date / Time No Known Allergies Allergy Verified 05/05/22 23:11 Review of Systems ROS Statement: Those systems with pertinent positive or pertinent negative responses have been documented in the HPI. ROS Other: All systems not noted in ROS Statement are negative. Past Medical History Past Medical History: Coronary Artery Disease (CAD), Diabetes Mellitus History of Any Multi-Drug Resistant Organisms: None Reported Past Surgical History: Coronary Bypass/CABG, Hernia Repair Additional Past Surgical History / Comment(s): quad bypass about 1984. R hand orthopedic Past Anesthesia/Blood Transfusion Reactions: No Reported Reaction Past Psychological History: No Psychological Hx Reported Smoking Status: Current every day smoker Past Alcohol Use History: Occasional Past Drug Use History: Marijuana General Exam Limitations: no limitations General appearance: alert, cachectic Head exam: Present: atraumatic, normocephalic, normal inspection Eye exam: Present: normal appearance, PERRL, EOMI. Absent: scleral icterus, conjunctival injection, periorbital swelling ENT exam: Present: normal exam, mucous membranes moist Neck exam: Present: normal inspection. Absent: tenderness, meningismus, lymphadenopathy Respiratory exam: Present: normal lung sounds bilaterally. Absent: respiratory distress, wheezes, rales, rhonchi, stridor Cardiovascular Exam: Present: regular rate, normal rhythm, normal heart sounds. Absent: systolic murmur, diastolic murmur, rubs, gallop, clicks GI/Abdominal exam: Present: soft, normal bowel sounds. Absent: distended, tenderness, guarding, rebound, rigid Extremities exam: Present: normal inspection, full ROM, normal capillary refill. Absent: tenderness, pedal edema, joint swelling, calf tenderness Back exam: Present: normal inspection Neurological exam: Present: alert, oriented X3, CN II-XII intact Psychiatric exam: Present: normal affect, normal mood Skin exam: Present: warm, dry, intact, normal color. Absent: rash Course Vital Signs 05/05/22 05/05/22 05/05/22 17:50 21:56 22:00 Temperature 97.9 F Pulse Rate 94 82 Respiratory 16 Rate Blood Pressure 102/71 105/86 O2 Sat by Pulse 100 98 98 Oximetry 05/06/22 00:00 Temperature Pulse Rate 74 Respiratory Rate Blood Pressure 118/75 O2 Sat by Pulse 98 Oximetry - Reevaluation(s) Reevaluation #1: 05/06/22 00:26 Medical record is reviewed 05/06/22 00:26 Did have recent. Complicated Hospital course with new diagnosis of pancreatic cancer Reevaluation #2: 05/06/22 00:26 Ration significant acute distress no pain - Consultations Consultation #1: Spoke with [facility] re admission they are agreeable EKG Findings - EKG Comments: EKG Findings:: EKG nsr 88 MO 123 QRS 75 QTc 405 Medical Decision Making - Medical Decision Making 72 male to the emergency room for evaluation patient presents today for evaluation of persistent weakness patient unable to take care of himself at home patient unable to do activities of daily living. Patient diagnoses of cancer increasing weakness - Lab Data Result diagrams: 05/05/22 22:18 05/05/22 22:18 Lab Results 05/05/22 05/05/22 05/05/22 Range/Units 22:18 22:18 22:18 WBC 8.5 (3.8-10.6) k/uL RBC 4.10 L (4.30-5.90) m/uL Hgb 12.5 L (13.0-17.5) gm/dL Hct 38.4 L (39.0-53.0) % MCV 93.6 (80.0-100.0) fL MCH 30.4 (25.0-35.0) pg MCHC 32.5 (31.0-37.0) g/dL RDW 15.9 H (11.5-15.5) % Plt Count 263 (150-450) k/uL MPV 8.6 Neutrophils % 82 % Lymphocytes % 9 % Monocytes % 5 % Eosinophils % 1 % Basophils % 2 % Neutrophils # 6.9 (1.3-7.7) k/uL Lymphocytes # 0.8 L (1.0-4.8) k/uL Monocytes # 0.5 (0-1.0) k/uL Eosinophils # 0.1 (0-0.7) k/uL Basophils # 0.1 (0-0.2) k/uL PT 11.9 (9.0-12.0) sec INR 1.1 (<1.2) APTT 21.9 L (22.0-30.0) sec Sodium 134 L (137-145) mmol/L Potassium 3.4 L (3.5-5.1) mmol/L Chloride 97 L (98-107) mmol/L Carbon Dioxide 31 H (22-30) mmol/L Anion Gap 6 mmol/L BUN 22 H (9-20) mg/dL Creatinine 0.77 (0.66-1.25) mg/dL Est GFR (CKD-EPI)AfAm >90 (>60 ml/min/1.73 sqM) Est GFR (CKD-EPI)NonAf >90 (>60 ml/min/1.73 sqM) Glucose 84 (74-99) mg/dL Calcium 9.0 (8.4-10.2) mg/dL Phosphorus 4.0 (2.5-4.5) mg/dL Magnesium 2.3 (1.6-2.3) mg/dL Total Bilirubin 1.5 H (0.2-1.3) mg/dL AST 75 H (17-59) U/L ALT 55 H (4-49) U/L Alkaline Phosphatase 514 H (38-126) U/L Troponin I (0.000-0.034) ng/mL Total Protein 5.7 L (6.3-8.2) g/dL Albumin 3.0 L (3.5-5.0) g/dL Lipase (23-300) U/L TSH 4.020 (0.465-4.680) mIU/L 05/05/22 05/05/22 Range/Units 22:18 22:18 WBC (3.8-10.6) k/uL RBC (4.30-5.90) m/uL Hgb (13.0-17.5) gm/dL Hct (39.0-53.0) % MCV (80.0-100.0) fL MCH (25.0-35.0) pg MCHC (31.0-37.0) g/dL RDW (11.5-15.5) % Plt Count (150-450) k/uL MPV Neutrophils % % Lymphocytes % % Monocytes % % Eosinophils % % Basophils % % Neutrophils # (1.3-7.7) k/uL Lymphocytes # (1.0-4.8) k/uL Monocytes # (0-1.0) k/uL Eosinophils # (0-0.7) k/uL Basophils # (0-0.2) k/uL PT (9.0-12.0) sec INR (<1.2) APTT (22.0-30.0) sec Sodium (137-145) mmol/L Potassium (3.5-5.1) mmol/L Chloride (98-107) mmol/L Carbon Dioxide (22-30) mmol/L Anion Gap mmol/L BUN (9-20) mg/dL Creatinine (0.66-1.25) mg/dL Est GFR (CKD-EPI)AfAm (>60 ml/min/1.73 sqM) Est GFR (CKD-EPI)NonAf (>60 ml/min/1.73 sqM) Glucose (74-99) mg/dL Calcium (8.4-10.2) mg/dL Phosphorus (2.5-4.5) mg/dL Magnesium (1.6-2.3) mg/dL Total Bilirubin (0.2-1.3) mg/dL AST (17-59) U/L ALT (4-49) U/L Alkaline Phosphatase (38-126) U/L Troponin I <0.012 (0.000-0.034) ng/mL Total Protein (6.3-8.2) g/dL Albumin (3.5-5.0) g/dL Lipase 56 (23-300) U/L TSH (0.465-4.680) mIU/L - Radiology Data Radiology results: report reviewed (Ultrasound is negative for significant acute disease), image reviewed Disposition Clinical Impression: Dehydration, Metastatic cancer to liver, Failure to thrive Disposition: ADMITTED IP TO THIS HOSP Condition: Fair Is patient prescribed a controlled substance at d/c from ED?: No Referrals: Wilfredo Soarse MD [Primary Care Provider] - 1-2 days Time of Disposition: 01:00
[2022-05-05 22:35] LABS: ALT 55 U/L (4-49); AST 75 U/L (17-59); African American GFR (CKD) >90 (>60 ml/min/1.73 sqM); Alkaline Phosphatase 514 U/L (38-126); Anion Gap 6 mmol/L; Blood Urea Nitrogen 22 mg/dL (9-20); Carbon Dioxide 31 mmol/L (22-30); Chloride 97 mmol/L (98-107); Glucose 84 mg/dL (74-99); Magnesium 2.3 mg/dL (1.6-2.3); Non-African American GFR(CKD) >90 (>60 ml/min/1.73 sqM); Potassium 3.4 mmol/L (3.5-5.1); Sodium 134 mmol/L (137-145); Total Bilirubin 1.5 mg/dL (0.2-1.3); Total Protein 5.7 g/dL (6.3-8.2)
[2022-05-05 22:45] LABS: Basophils # (A) 0.1 k/uL (0-0.2); Basophils % (A) 2 %; Eosinophils # (A) 0.1 k/uL (0-0.7); Eosinophils % (A) 1 %; HCT 38.4 % (39.0-53.0); HGB 12.5 gm/dL (13.0-17.5); Lymphocytes # (A) 0.8 k/uL (1.0-4.8); Lymphocytes % (A) 9 %; MCH 30.4 pg (25.0-35.0); MCHC 32.5 g/dL (31.0-37.0); MCV 93.6 fL (80.0-100.0); Mean Platelet Volume 8.6; Monocytes # (A) 0.5 k/uL (0-1.0); Monocytes % (A) 5 %; Neutrophils # (A) 6.9 k/uL (1.3-7.7); Neutrophils % (A) 82 %; Platelet Count 263 k/uL (150-450); RDW 15.9 % (11.5-15.5); WBC 8.5 k/uL (3.8-10.6)
[2022-05-05 22:51] LABS: INR 1.1 (<1.2); Prothrombin Time 11.9 sec (9.0-12.0)
[2022-05-05 23:14] LABS: Partial Thromboplastin Time 21.9 sec (22.0-30.0)
[2022-05-06] MEDS ORDERED: POTASSIUM BICARBONATE/CIT AC 20 MEQ TABLET.EFF PO STA (00:22)
--- NOTE | 2022-05-06 00:42 | US ---
EXAMINATION TYPE: US gallbladder DATE OF EXAM: 05/06/2022 COMPARISON: 04/23-04/28/22 CT, NM, BX CLINICAL HISTORY: pain. Pain, weakness. Recent metastatic cancer diagnosis. EXAM MEASUREMENTS: Liver Length: 19.9 cm Gallbladder Wall: 0.16 cm CBD: 0.43 cm Right Kidney: 10.2 x 3.7 x 4.4 cm Pancreas: Limited visualization due to enlarged, metastatic abdominal lymph nodes Liver: Heterogenous, metastatic appearance Gallbladder: Large stone noted Evidence for sonographic Yen's sign: No CBD: Appears wnl measuring 0.43 cm Right Kidney: No hydronephrosis or masses seen Trace amounts of free fluid seen IMPRESSION: There is a single large gallstone. No dilated ducts. Heterogeneity in the liver consistent with metas tatic disease. No dilated ducts.
[2022-05-06] MEDS ORDERED: MORPHINE SULFATE 4 MG/ML SYRINGE IV PRN (01:01)
[2022-05-06] MEDS ORDERED: NALOXONE 0.4 MG/ML 1 ML VIAL IV PRN (01:01)
[2022-05-06] MEDS ORDERED: LORazepam 2 MG/ML INJ IV PRN (01:01)
[2022-05-06] MEDS ORDERED: ONDANSETRON 4 MG/2 ML VIAL IVP PRN (01:01)
[2022-05-06] MEDS: SODIUM CHLORIDE 0.9% 1,000 ML IV SCH ×3 (06:19→13:36)
[2022-05-06] MEDS ORDERED: polyethylene glycoL 3350 17 GM POWD.PACK PO PRN (10:38)
[2022-05-06] MEDS ORDERED: POTASSIUM CHLORIDE ER 20 MEQ TAB.ER PO STA (10:39)
[2022-05-06 11:37] LABS: Appearance,Urine Clear (Clear); Bilirubin,Urine 1+ (Negative); Blood,Urine Negative (Negative); Color,Urine Yellow; Glucose,Urine (UA) Negative (Negative); Ketones,Urine 1+ (Negative); Leukocyte Esterase,Urine Negative (Negative); Nitrite,Urine Negative (Negative); Protein,Urine Trace (Negative)
[2022-05-06 12:17] LABS: Glucose,Whole Blood 126 mg/dL (75-99)
--- NOTE | 2022-05-06 12:51 | P.HPIM ---
History of Present Illness Patient is a 72-year-old male was recently diagnosed with pancreatic cancer found to have metastatic disease now to the liver came in because of unable to ambulate and unable to take care of himself. Patient is found to be dehydrated and patient was started on IV fluids subsequently admitted. Oncology was consulted patient was not started on chemotherapy yet. REVIEW OF SYSTEMS: CONSTITUTIONAL: No fever, no malaise, no fatigue. HEENT: No recent visual problems or hearing problems. Denied any sore throat. CARDIOVASCULAR: No chest pain, orthopnea, PND, no palpitations, no syncope. PULMONARY: No shortness of breath, no cough, no hemoptysis. GASTROINTESTINAL: No diarrhea, no nausea, no vomiting, no abdominal pain. NEUROLOGICAL: No headaches, no weakness, no numbness. HEMATOLOGICAL: Denies any bleeding or petechiae. GENITOURINARY: Denies any burning micturition, frequency, or urgency. MUSCULOSKELETAL/RHEUMATOLOGICAL: Denies any joint pain, swelling, or any muscle pain. ENDOCRINE: Denies any polyuria or polydipsia. The rest of the 14-point review of systems is negative. PHYSICAL EXAMINATION: GENERAL: The patient is alert and oriented x3, not in any acute distress. Well developed, well nourished. HEENT: Pupils are round and equally reacting to light. EOMI. No scleral icterus. No conjunctival pallor. Normocephalic, atraumatic. No pharyngeal erythema. No thyromegaly. CARDIOVASCULAR: S1 and S2 present. No murmurs, rubs, or gallops. PULMONARY: Chest is clear to auscultation, no wheezing or crackles. ABDOMEN: Soft, nontender, nondistended, normoactive bowel sounds. No palpable organomegaly. MUSCULOSKELETAL: No joint swelling or deformity. EXTREMITIES: No cyanosis, clubbing, or pedal edema. NEUROLOGICAL: Gross neurological examination did not reveal any focal deficits. He is independent generalized weakness. SKIN: No rashes. Assessment and plan -Hypovolemic hyponatremia, dehydration patient will be started on IV fluids [place] have some generalized weakness secondary to cancer patient has metastatic pancreatic cancer oncology will be consulted physical therapy and outpatient therapy will evaluate the patient possibly of discharge to subacute rehabilitation -Protein Malnutrition with BMI 15.5 mild -Type 2 diabetes mellitus: Patient will be on sliding scale for now patient uses just glipizide and metformin at home which will be held temporally DVT prophylaxis: Lovenox Past Medical History Past Medical History: Coronary Artery Disease (CAD), Diabetes Mellitus History of Any Multi-Drug Resistant Organisms: None Reported Past Surgical History: Coronary Bypass/CABG, Hernia Repair Additional Past Surgical History / Comment(s): quad bypass about 1984. R hand orthopedic Past Anesthesia/Blood Transfusion Reactions: No Reported Reaction Past Psychological History: No Psychological Hx Reported Smoking Status: Never smoker Past Alcohol Use History: Occasional Past Drug Use History: Marijuana Medications and Allergies Home Medications Medication Instructions Recorded Confirmed Type Aspirin EC [Ecotrin Low Dose] 81 mg PO DAILY 02/27/22 05/05/22 History glipiZIDE [Glucotrol XL] 10 mg PO DAILY 30 Days #30 tab 02/28/22 05/05/22 Rx metFORMIN HCL [Glucophage] 500 mg PO BID 30 Days #60 tab 02/28/22 05/05/22 Rx Ergocalciferol (Vitamin D2) 1,250 mcg PO TH 04/23/22 05/05/22 History [Drisdol (50,000 Iu)] Allergies Allergy/AdvReac Type Severity Reaction Status Date / Time No Known Allergies Allergy Verified 05/05/22 23:11 Physical Exam Vitals: Vital Signs Temp Pulse Pulse Resp BP BP Pulse Ox 05/06/22 11:53 97.4 F L 89 18 105/75 100 05/06/22 11:03 80 16 103/54 100 05/06/22 06:00 78 16 107/68 05/06/22 01:00 98 05/06/22 00:00 74 118/75 98 05/05/22 22:00 98 05/05/22 21:56 82 105/86 98 05/05/22 17:50 97.9 F 94 16 102/71 100 Intake and Output 05/05/22 05/06/22 05/06/22 22:59 06:59 14:59 Other: Voiding Method Toilet Weight 45.359 kg 45.359 kg Results CBC & Chem 7: 05/05/22 22:18 05/05/22 22:18 Labs: Abnormal Lab Results - Last 24 Hours (Table) 05/05/22 05/05/22 05/05/22 Range/Units 22:18 22:18 22:18 RBC 4.10 L (4.30-5.90) m/uL Hgb 12.5 L (13.0-17.5) gm/dL Hct 38.4 L (39.0-53.0) % RDW 15.9 H (11.5-15.5) % Lymphocytes # 0.8 L (1.0-4.8) k/uL APTT 21.9 L (22.0-30.0) sec Sodium 134 L (137-145) mmol/L Potassium 3.4 L (3.5-5.1) mmol/L Chloride 97 L (98-107) mmol/L Carbon Dioxide 31 H (22-30) mmol/L BUN 22 H (9-20) mg/dL POC Glucose (mg/dL) (75-99) mg/dL Total Bilirubin 1.5 H (0.2-1.3) mg/dL AST 75 H (17-59) U/L ALT 55 H (4-49) U/L Alkaline Phosphatase 514 H (38-126) U/L Total Protein 5.7 L (6.3-8.2) g/dL Albumin 3.0 L (3.5-5.0) g/dL Urine Protein (Negative) Urine Ketones (Negative) Urine Bilirubin (Negative) 05/06/22 05/06/22 Range/Units 11:00 12:16 RBC (4.30-5.90) m/uL Hgb (13.0-17.5) gm/dL Hct (39.0-53.0) % RDW (11.5-15.5) % Lymphocytes # (1.0-4.8) k/uL APTT (22.0-30.0) sec Sodium (137-145) mmol/L Potassium (3.5-5.1) mmol/L Chloride (98-107) mmol/L Carbon Dioxide (22-30) mmol/L BUN (9-20) mg/dL POC Glucose (mg/dL) 126 H (75-99) mg/dL Total Bilirubin (0.2-1.3) mg/dL AST (17-59) U/L ALT (4-49) U/L Alkaline Phosphatase (38-126) U/L Total Protein (6.3-8.2) g/dL Albumin (3.5-5.0) g/dL Urine Protein Trace H (Negative) Urine Ketones 1+ H (Negative) Urine Bilirubin 1+ H (Negative) Thrombosis Risk Factor Assmnt - Choose All That Apply Any of the Below Risk Factors Present?: No Other Risk Factors: Yes Each Risk Factor Represents 2 Points: Age 61-74 years Thrombosis Risk Factor Assessment Total Risk Factor Score: 2 Thrombosis Risk Factor Assessment Level: Low Risk
[2022-05-06] MEDS: INSULIN ASPART (NovoLOG) 100 UNIT/ML VIAL SQ SCH ×3 (13:12→20:29)
[2022-05-06 17:19] LABS: Glucose,Whole Blood 139 mg/dL (75-99)
[2022-05-06] MEDS: PANTOPRAZOLE 40 MG/10 ML VIAL IVP SCH (17:50)
--- NOTE | 2022-05-06 20:11 | P.CONS ---
History of Present Illness - Reason for Consult Consult date: 05/06/22 newly diagnosed pancreaticobiliary adenocarcinoma Requesting physician: Ena Garcia - Chief Complaint week, persistent weight loss - History of Present Illness Mr Deleon is a pleasant 72-year-old man that we saw just last week for concerns of metastatic pancreatic cancer. Patient had rapid weight loss over the last few months, loss of energy and general malaise. CT scans revealed a pancreatic head mass, liver lesions and intraperitoneal adenopathy. Patient had a liver biopsy 04/28 that was positive for adenocarcinoma, GI versus pancreaticobiliary. Bone scan was negative. CT AP revealed a pancreatic mass, abdominal lymphadenopathy and lesions in the liver. Chest was negative. CA 19.9 was greater than 10,000. Patient was due to be seen in the Oncology office in tomorrow for path results and plan of care. Unfortunately, patient is had progressive weakness and weight loss. he has no appetite, early satiety, denies any acute changes in breathing, chest pain, abdominal pain, he is reporting constipation, some difficulty initiating urine stream, his urine is dark brown. No swelling in the lower extremities. Denies bleeding. Review of Systems 10 point review of systems is as stated in HPI Past Medical History Past Medical History: Coronary Artery Disease (CAD), Cancer, Diabetes Mellitus History of Any Multi-Drug Resistant Organisms: None Reported Past Surgical History: Coronary Bypass/CABG, Hernia Repair Additional Past Surgical History / Comment(s): quad bypass about 1984. R hand orthopedic Past Anesthesia/Blood Transfusion Reactions: No Reported Reaction Past Psychological History: No Psychological Hx Reported Smoking Status: Never smoker Past Alcohol Use History: Occasional Past Drug Use History: Marijuana Medications and Allergies Home Medications Medication Instructions Recorded Confirmed Type Aspirin EC [Ecotrin Low Dose] 81 mg PO DAILY 02/27/22 05/05/22 History glipiZIDE [Glucotrol XL] 10 mg PO DAILY 30 Days #30 tab 02/28/22 05/05/22 Rx metFORMIN HCL [Glucophage] 500 mg PO BID 30 Days #60 tab 02/28/22 05/05/22 Rx Ergocalciferol (Vitamin D2) 1,250 mcg PO TH 04/23/22 05/05/22 History [Drisdol (50,000 Iu)] Allergies Allergy/AdvReac Type Severity Reaction Status Date / Time No Known Allergies Allergy Verified 05/05/22 23:11 Physical Exam Vitals: Vital Signs Temp Pulse Pulse Resp BP BP Pulse Ox 05/06/22 11:53 97.4 F L 89 18 105/75 100 05/06/22 11:03 80 16 103/54 100 05/06/22 06:00 78 16 107/68 05/06/22 01:00 98 05/06/22 00:00 74 118/75 98 05/05/22 22:00 98 05/05/22 21:56 82 105/86 98 05/05/22 17:50 97.9 F 94 16 102/71 100 Intake and Output 05/05/22 05/06/22 05/06/22 22:59 06:59 14:59 Other: Voiding Method Toilet Weight 45.359 kg 45.359 kg - Constitutional General appearance: cooperative, no acute distress, thin - EENT Eyes: anicteric sclerae, EOMI ENT: hearing grossly normal - Neck Neck: no lymphadenopathy - Respiratory Respiratory: bilateral: CTA - Cardiovascular Rhythm: regular Heart sounds: normal: S1, S2 Abnormal Heart Sounds: no systolic murmur, no diastolic murmur, no rub, no S3 Gallop, no S4 Gallop, no click, no other leg Peripheral Edema: bilateral: None - Gastrointestinal General gastrointestinal: no absent bowel sounds, no decreased bowel sounds, no distended, no hepatomegaly, no hyperactive bowel sounds, normal bowel sounds, no organomegaly, no rigid, scaphoid, soft, no splenomegaly, tenderness, no umbil ical hernia, no ventral hernia - Integumentary Integumentary: jaundiced - Neurologic Neurologic: CNII-XII intact - Musculoskeletal Musculoskeletal: generalized weakness - Psychiatric Psychiatric: A&O x's 3, appropriate affect, intact judgment & insight Results CBC & Chem 7: 05/05/22 22:18 05/05/22 22:18 Labs: Abnormal Lab Results - Last 24 Hours (Table) 05/05/22 05/05/22 05/05/22 Range/Units 22:18 22:18 22:18 RBC 4.10 L (4.30-5.90) m/uL Hgb 12.5 L (13.0-17.5) gm/dL Hct 38.4 L (39.0-53.0) % RDW 15.9 H (11.5-15.5) % Lymphocytes # 0.8 L (1.0-4.8) k/uL APTT 21.9 L (22.0-30.0) sec Sodium 134 L (137-145) mmol/L Potassium 3.4 L (3.5-5.1) mmol/L Chloride 97 L (98-107) mmol/L Carbon Dioxide 31 H (22-30) mmol/L BUN 22 H (9-20) mg/dL POC Glucose (mg/dL) (75-99) mg/dL Total Bilirubin 1.5 H (0.2-1.3) mg/dL AST 75 H (17-59) U/L ALT 55 H (4-49) U/L Alkaline Phosphatase 514 H (38-126) U/L Total Protein 5.7 L (6.3-8.2) g/dL Albumin 3.0 L (3.5-5.0) g/dL Urine Protein (Negative) Urine Ketones (Negative) Urine Bilirubin (Negative) 05/06/22 05/06/22 Range/Units 11:00 12:16 RBC (4.30-5.90) m/uL Hgb (13.0-17.5) gm/dL Hct (39.0-53.0) % RDW (11.5-15.5) % Lymphocytes # (1.0-4.8) k/uL APTT (22.0-30.0) sec Sodium (137-145) mmol/L Potassium (3.5-5.1) mmol/L Chloride (98-107) mmol/L Carbon Dioxide (22-30) mmol/L BUN (9-20) mg/dL POC Glucose (mg/dL) 126 H (75-99) mg/dL Total Bilirubin (0.2-1.3) mg/dL AST (17-59) U/L ALT (4-49) U/L Alkaline Phosphatase (38-126) U/L Total Protein (6.3-8.2) g/dL Albumin (3.5-5.0) g/dL Urine Protein Trace H (Negative) Urine Ketones 1+ H (Negative) Urine Bilirubin 1+ H (Negative) Comments: ultrasound of the gallbladder reveals a large stone Assessment and Plan (1) Pancreatic adenocarcinoma Current Visit: Yes Status: Acute Priority: High Code(s): C25.9 - MALIGNANT NEOPLASM OF PANCREAS, UNSPECIFIED SNOMED Code(s): 346755053 (2) Metastatic cancer to liver Current Visit: Yes Status: Acute Priority: High Code(s): C78.7 - SECONDARY MALIG NEOPLASM OF LIVER AND INTRAHEPATIC BILE DUCT SNOMED Code(s): 04838130 Plan: Dr. Willson reviewed with the patient the diagnosis of pancreatic cancer, stage IV disease, intent of treatment would be palliation of symptoms and hopeful prolongation of life. Patient's performance status is a 2. Patient states he is having difficulty eating, this is making him continually weaker. Concern is that patient's current performance status will prevent him from receiving treatment at this time. Patient understands. Goal at this time is to treat supportively, get PT/OT involved and see how patient does. If patient is able to stabilize and may be improve PS slightly, could consider treatment. Patient does understand that there is no cure. Did discuss with patient option of treating symptoms versus treating disease. Pt wants to see how he does first, then he will make decisions. All questions were answered to the best of our ability. attests: I have seen and examined patient, performed H&P, developed impression and plan of care. Discussed with dictator. Agree with dictation documented as a scribe
[2022-05-06 20:53] LABS: Glucose,Whole Blood 136 mg/dL (75-99)
[2022-05-06] MEDS ORDERED: metFORMIN 500 MG TAB PO SCH (21:00)
[2022-05-06] MEDS ORDERED: MORPHINE SULFATE 2 MG/ML SYRINGE IVP PRN (23:54)
[2022-05-07] MEDS: SODIUM CHLORIDE 0.9% 1,000 ML IV SCH ×2 (00:07→13:53)
[2022-05-07 07:16] LABS: Glucose,Whole Blood 112 mg/dL (75-99)
[2022-05-07] MEDS: INSULIN ASPART (NovoLOG) 100 UNIT/ML VIAL SQ SCH ×2 (07:28→12:36)
[2022-05-07] MEDS: PANTOPRAZOLE 40 MG/10 ML VIAL IVP SCH (08:57)
[2022-05-07] MEDS ORDERED: ASPIRIN 81 MG PO SCH (09:00)
[2022-05-07] MEDS ORDERED: ENOXAPARIN 40 MG/0.4 ML SYRINGE SQ SCH (09:00)
[2022-05-07] MEDS ORDERED: GLIPIZIDE 10 MG PO SCH (09:00)
[2022-05-07 10:23] LABS: African American GFR (CKD) 126.4 (60.0-200.0); Albumin 2.9 g/dL (3.8-4.9); Albumin/Globulin Ratio 1.53 (1.60-3.17); Anion Gap 9.4 mmol/L (10.00-18.00); BUN/Creat Ratio 18.6 Ratio (12.00-20.00); Blood Urea Nitrogen 9.3 mg/dL (9.0-27.0); Calcium 8.2 mg/dL (8.7-10.3); Carbon Dioxide 26.6 mmol/L (20.0-27.5); Globulin 1.9 g/dL (1.6-3.3); Magnesium 1.8 mg/dL (1.5-2.4); Phosphorus 1.8 mg/dL (2.4-5.1); Potassium 3.7 mmol/L (3.5-5.5); Total Protein 4.8 g/dL (6.2-8.2)
[2022-05-07] MEDS ORDERED: POTASSIUM CHLORIDE ER 20 MEQ TAB.ER PO STA (11:05)
[2022-05-07] MEDS ORDERED: Phosphorus Replacement Protoco 1 EACH MISC MISCELLANE PRN (11:22)
[2022-05-07] MEDS: MAGNESIUM SULFATE-D5W PMX 1 GM in DEXTROSE/WATER 1 100ML.BAG IVPB SCH ×2 (11:24→12:36)
--- NOTE | 2022-05-07 11:25 | P.DS ---
Providers Date of admission: 05/06/22 01:01 Attending physician: Nettie Stafford Consults: 05/06/22 01:01 Consult Physician Routine Consulting Provider: Durga Willson Consult Reason/Comments: known Do you want consulting provider notified?: Yes Primary care physician: Fany Villalobos Hospital Course: Final Diagnosis -Hypovolemic hyponatremia patient was dehydrated on admission with decreased oral intake at home he has improved with IV fluids -Generalized weakness secondary to cancer which is metastatic pancreatic cancer this is a new diagnosis -Protein malnutrition with BMI 15.5 which is mild patient will continue with oral protein supplementation outpatient 3 times a day -Type 2 diabetes mellitus patient continues on glipizide and metformin and sliding scale -Coronary artery disease status post 4 vessel CABG Full Code Discharge Disposition Patient is stable for discharge today to rehab, patient would like to try and gain some strength in order to return home before deciding on cancer treatment vs. hospice. Hospital Course This is a pleasant 72-year-old male patient of also past medical history significant for coronary artery disease status post 4 vessel CABG, recent diagnosis for diabetes, recent diagnosis of metastatic pancreatic cancer. He has not started any chemotherapy outpatient. He was discharged home to the hospital and after hospital with complaints of generalized weakness and decreased appetite. Events with bilateral pedal edema which is new over the last couple days. He was recently hospitalized from April 23 to April 28. Returns to the hospital on May 05. Previous hospital stay patient underwent liver biopsy which shows metastatic adenocarcinoma consistent with pancreaticobiliary versus GI primary. He also had chest CT which is not suspicious for any masses or adenopathy to suggest metastatic disease at this location. Hemoglobin A1c was found to be 9.6 on 03/25/22. Hospital stay he presents with labs white count 8.5, hemoglobin 12.5. His sodium was 134, potassium 3.4, BUN 22, creatinine 0.77, blood glucoses in the 130s. Total bili 1.5, AST 75, ALT 55, alk phos. His troponin is negative. Lipase 56, TSH 4.020. Urinalysis negative for infection. He was started on normal saline for hydration, sodium supplementation was given which had improved to 3.7. He was seen in consultation by oncology services. Patient will need rehab prior to starting any cancer treatment. He is still undecided, hospice has also been consulted to meet with patient. 05/07/2022 Patient evaluated today resting in bed. He denies any chest pressure as of breath. He does have some mild abdominal pain. Denies nausea. His bowels are moving no blood in the stool. He has a decreased appetite we will start patient on oral protein supplementation with ensure enlive and serafin 3 times a day. Labs today are showing a sodium level of 139, potassium 3.7, chloride 103, CO2 26.6, blood glucose in the 1 teens, phosphorus 1.8, calcium 8.2, magnesium 1.8. Liver enzymes are stable. He will receive IV magnesium, IV phosphorous, oral potassium supplementation today. Blood pressure over 78, 100% room air, heart rate 80, 98.1 temperature. He does have some pedal edema compression hose has been ordered. Patient will discharge to rehab and follow-up with his PCP and oncology. Patient is undecided about pursuing hospice at this time. Lungs are clear, S1-S2 auscultated he has normoactive bowel sounds. Focal neurologic exam is negative. Please see medication reconciliation for a list of current medication. Thank you for allowing us to participate in the care of this patient. The impression and plan of care has been dictated by Alba Villa Nurse Practitioner as directed. Dr. Radha MD I have performed a history and physical examination and medical decision making of this patient, discussed the same with the dictator, and agree with the dictators assessment and plan as written, documented as a scribe. Based on total visit time, I have performed more than 50% of this visit. Patient Condition at Discharge: Fair Plan - Discharge Summary Discharge Rx Participant: No New Discharge Prescriptions: New Potassium Chloride ER [K-Dur 20] 20 meq PO DAILY #30 tab INSULIN ASPART (NovoLOG) [NovoLOG (formulary)] 0 unit SQ ACHS each Pantoprazole [Protonix] 40 mg PO DAILY #30 tab Ondansetron [Zofran] 4 mg PO Q8HR PRN #6 tab PRN Reason: Nausea polyethylene glycoL 3350 [Miralax] 17 gm PO DAILY PRN packet PRN Reason: Constipation Continue Aspirin EC [Ecotrin Low Dose] 81 mg PO DAILY metFORMIN HCL [Glucophage] 500 mg PO BID 30 Days #60 tab glipiZIDE [Glucotrol XL] 10 mg PO DAILY 30 Days #30 tab Ergocalciferol (Vitamin D2) [Drisdol (50,000 Iu)] 1,250 mcg PO TH Discharge Medication List Aspirin EC [Ecotrin Low Dose] 81 mg PO DAILY 02/27/22 [History] glipiZIDE [Glucotrol XL] 10 mg PO DAILY 30 Days #30 tab 02/28/22 [Rx] metFORMIN HCL [Glucophage] 500 mg PO BID 30 Days #60 tab 02/28/22 [Rx] Ergocalciferol (Vitamin D2) [Drisdol (50,000 Iu)] 1,250 mcg PO TH 04/23/22 [History] INSULIN ASPART (NovoLOG) [NovoLOG (formulary)] 0 unit SQ ACHS each 05/07/22 [Rx] Ondansetron [Zofran] 4 mg PO Q8HR PRN #6 tab 05/07/22 [Rx] Pantoprazole [Protonix] 40 mg PO DAILY #30 tab 05/07/22 [Rx] Potassium Chloride ER [K-Dur 20] 20 meq PO DAILY #30 tab 05/07/22 [Rx] polyethylene glycoL 3350 [Miralax] 17 gm PO DAILY PRN packet 05/07/22 [Rx] Follow up Appointment(s)/Referral(s): Wilfredo Soares MD [Primary Care Provider] - 1-2 days Durga Willson MD [STAFF PHYSICIAN] - 1 Week Discharge Disposition: TRANSFER TO SNF/ECF
[2022-05-07 11:53] LABS: Glucose,Whole Blood 146 mg/dL (75-99)
[2022-05-07 12:53] LABS: Eosinophils # (A) 0.14 X 10*3/uL (0.04-0.35); Eosinophils % (A) 1.8 %; HCT 38.2 % (39.6-50.0); Immature Grans, Automated 0.3 %; Lymphocytes # (A) 1.15 X 10*3/uL (0.90-5.00); Lymphocytes % (A) 14.8 %; MCH 30.5 pg (27.0-32.0); MCV 89.7 fL (80.0-97.0); Mean Platelet Volume 10.9 fL (9.5-12.2); Monocytes % (A) 6.5 %; Platelet Count 221 X 10*3/uL (140-440); RBC 4.26 X 10*6/uL (4.40-5.60); RDW 15.6 % (11.5-14.5); WBC 7.75 X 10*3/uL (4.50-10.00)
[2022-05-07 12:54] LABS: RBC Morphology NORMAL
[2022-05-07 13:46] VITALS: BP 102/77; PULSE 92; RESP 16; TEMP 97.3
[2022-05-07] MEDS: POTASSIUM PHOSPHATE 10 MMOL in SODIUM CHLORIDE 0.9% 250 ML IV SCH ×2 (13:53→16:26)
[2022-05-07 14:33] VITALS: BMI 15.2
[2022-05-08] MEDS ORDERED: PANTOPRAZOLE 40 MG TABLET PO SCH (07:30)
[2022-05-08] MEDS ORDERED: ERGOCALCIFEROL 1,250 MCG (50,000 IU) CAPSULE PO SCH (09:00)
== END 2022-05-07 17:53 ==
LOC: EC 16:54 → 5NMEDONC 05-06 01:01 → 6NMEDSUR 05-06 10:28
PROVIDERS: ADMIT Hospitalist; ATTEND Hospitalist
DX: C25.9 Malignant neoplasm of pancreas, unspecified (principal); C78.7 Secondary malignant neoplasm of liver and intrahepatic bile duct; E11.9 Type 2 diabetes mellitus without complications; R63.4 Abnormal weight loss; E46 Unspecified protein-calorie malnutrition; E86.0 Dehydration; E86.1 Hypovolemia; E87.1 Hypo-osmolality and hyponatremia; I25.10 Atherosclerotic heart disease of native coronary artery without angina pectoris; R62.7 Adult failure to thrive; Z68.1 Body mass index [BMI] 19.9 or less, adult; F17.200 Nicotine dependence, unspecified, uncomplicated; Z79.82 Long term (current) use of aspirin; Z79.84 Long term (current) use of oral hypoglycemic drugs; Z95.1 Presence of aortocoronary bypass graft; Z85.07 Personal history of malignant neoplasm of pancreas
CPT/HCPCS: 99285; 96376; 96361 ×3; 96365; 96366; 96372; 96375 ×2; 36415; 93005; 97530; 97162; 97166; 80053 ×2; 83690; 83735 ×2; 84100 ×2; 84443; 84484; 85025 ×2; 85610; 85730; 81003; 76705; G0378 ×2; J1650; J2270; J3475; C9113 ×2